=== PATIENT | female | born 1955 | race Hispanic/Latino ===

== ENCOUNTER 2016-08-30 06:55 | Emergency (ER) | payer OTHER ==
[~2016-08-30] VITALS: Ht 162.6 cm; Wt 108.9 kg
[2016-08-30] MEDS ORDERED: PROAIR HFA8.5 GM INH (07:44)
[2016-08-30] MEDS ORDERED: LISINOPRIL20 M1 PO (07:45)
[2016-08-30] MEDS ORDERED: HUMALOG MI100 UNIT/3 SC (07:45)
[2016-08-30] MEDS ORDERED: JENTADUETO 2.51 EAC2 PO (07:45)
[2016-08-30] MEDS ORDERED: AMBIEN10 M1 PO (07:46)
[2016-08-30] MEDS ORDERED: ONGLYZA5 M1 PO (07:46)
[2016-08-30] MEDS ORDERED: ASPIRIN81 M4 PO (07:46)
--- NOTE | 2016-08-30 07:54 | ED DYSPNEA/ASTHMA COMPLAINT ---
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 REP Source: patient Exam Limitations: no limitations Vital Signs & Intake/Output Vital Signs & Intake/Output Vital Signs Date Time Temp Pulse Resp B/P Pulse O2 O2 Flow FiO2 Ox Delivery Rate 08/30 0757 93 08/30 0745 96 Room Air 08/30 0708 97.4 104 20 154/81 95 Room Air Allergies Coded Allergies: No Known Allergies (08/30/16) Reconcile Medications Albuterol Sulfate (Proair Hfa) 90 MCG HFA.AER.AD 2 PUF INH Q4-6 PRN PRN BREATHING (Reported) Amoxicillin 875 MG TABLET 1 TAB PO BID uri Aspirin (Aspirin*) 81 MG TAB.CHEW 1 TAB PO DAILY HEART HEALTH (Reported) Benzonatate (Tessalon Perle) 100 MG CAPSULE 1 CAP PO TID cough Ibuprofen 600 MG TABLET 1 TAB PO Q6PRN PRN pain, fever with food Insulin NPL/Insulin Lispro (Humalog Mix 75-25 Kwikpen) 100 UNIT/ML (75-25) INSULN.PEN 50 U SC DIABETES (Reported) Linagliptin/Metformin HCl (Jentadueto 2.5 MG-1000 MG Tab) 2.5 MG-1,000 MG TABLET 1 TAB PO BID DIABETES (Reported) Lisinopril 20 MG TABLET 1 TAB PO DAILY HEART (Reported) Prednisone 20 MG TABLET 1 TAB PO BID asthma Saxagliptin (Onglyza) 5 MG TABLET 1 TAB PO DAILY DIABETES (Reported) Zolpidem Tartrate (Ambien) 10 MG TABLET 1 TAB PO QPM SLEEP (Reported) Triage Note: 60 Y/O FEMALE C/O "I HAVE A COLD AND ITS MAKING MY ASTHMA WORSE". REPORTS COUGH WITH CLEAR MUCOUS, SOB AND HOARSE VOICE. LAST USE INHALER FEW MINUTES AGO PER PT. SPEAKING CLEARLY WITH NO DISTRESS NOTED; SAT 95% RA Triage Nurses Notes Reviewed? yes Onset: 2 days Duration: day(s):, constant, continues in ED Timing: recent history Severity: moderate Activities at Onset: none Prior Episodes/Possible Cause: illness exposure Modifying Factors: Improves With: rest. Worsens With: movement. Associated Symptoms: cough, loss of appetite, wheezing LMP (ages 10-50): post menopausal : No Patient currently breastfeeds: No HPI: 2 days prior to admission patient complains of nasal congestion productive cough decreased appetite chills increasing wheezing and use of MDI. She denies fever chest pain nausea vomiting diarrhea abdominal pain dysuria rash headache bleeding. Past History Travel History Traveled to [place] past 21 day No Medical History Any Pertinent Medical History? 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 Yes Review of Systems Review of Systems Constitutional: Reports: see HPI, chills, malaise. EENTM: Reports: see HPI, nasal congestion, throat pain. Respiratory: Reports: see HPI, cough, wheezing. Cardiovascular: Reports: no symptoms. GI: Reports: no symptoms. Genitourinary: Reports: no symptoms. Musculoskeletal: Reports: no symptoms. Skin: Reports: no symptoms. Neurological/Psychological: Reports: no symptoms. Hematologic/Endocrine: Reports: no symptoms. Immunologic/Allergic: Reports: no symptoms. All Other Systems: Reviewed and Negative Physical Exam Physical Exam General Appearance: well developed/nourished, alert, awake, anxious, mild distress, obese Head: atraumatic, normal appearance Eyes: Bilateral: normal appearance, PERRL, EOMI. Ears, Nose, Throat: hearing grossly normal, nasal congestion, pharyngeal erythema Neck: normal inspection, supple, full range of motion, lymphadenopathy (R), lymphadenopathy (L) Respiratory: chest non-tender, no respiratory distress, decreased breath sounds, wheezing Cardiovascular: regular rate/rhythm, normal peripheral pulses, norml femoral pulses equa Peripheral Pulses: 4+ carotid (R), 4+ carotid (L) Gastrointestinal: normal bowel sounds, soft, non-tender, no organomegaly Extremities: normal inspection, normal capillary refill, normal range of motion, no edema Neurologic/Psych: no motor/sensory deficits, awake, alert, oriented x 3, normal gait, normal mood/affect Skin: intact, normal color, warm/dry Lymphatic: adenopathy Core Measures ACS in differential dx? No Severe Sepsis Present: No Septic Shock Present: No Progress Differential Diagnosis: asthma, bronchitis, pneumonia Plan of Care: Steroid antibiotic neb Initial ED EKG: none Departure Departure Time of Disposition: 0800 Disposition: HOME OR SELF CARE Condition: Stable Clinical Impression Primary Impression: Asthma with acute exacerbation in adult Secondary Impressions: Upper respiratory tract infection Qualifiers: URI type: unspecified URI Qualified Code: J06.9 - Acute upper respiratory infection, unspecified Referrals: PATIENT HAS NO PRIMARY CARE DR (PCP/Family) Referred to [facility] as new patient No Departure Forms: Customer Survey General Discharge Information Prescriptions: Current Visit Scripts Prednisone 1 TAB PO BID #10 TAB Amoxicillin 1 TAB PO BID #20 TAB Benzonatate (Tessalon Perle) 1 CAP PO TID #21 CAP Ibuprofen 1 TAB PO Q6PRN PRN pain, fever #50 TAB with food Critical Care Note Critical Care Note Critical Care Time: non-applicable
[2016-08-30] MEDS ORDERED: PREDNISONE20 M1 PO (08:02)
[2016-08-30] MEDS ORDERED: AMOXICILLIN875 M1 PO (08:02)
[2016-08-30] MEDS ORDERED: IBUPROFEN600 M1 PO (08:02)
[2016-08-30] MEDS ORDERED: TESSALON PERLE100 M1 PO (08:02)
[2016-08-30 08:51] VITALS: BP 140/80
== END 2016-08-30 08:52 ==
LOC: ERH 06:55
DX: J45.901 Unspecified asthma with (acute) exacerbation (principal); J06.9 Acute upper respiratory infection, unspecified
CPT/HCPCS: 1263

== ENCOUNTER 2016-08-31 06:46 | Inpatient (IN) | payer OTHER ==
[~2016-08-31] VITALS: Ht 162.6 cm; Wt 108.9 kg
[~2016-08-31 06:46] MED LIST: AMBIEN10 M1 PO; AMOXICILLIN875 M1 PO; ASPIRIN81 M4 PO; HUMALOG MI100 UNIT/3 SC; IBUPROFEN600 M1 PO; JENTADUETO 2.51 EAC2 PO; LISINOPRIL20 M1 PO; ONGLYZA5 M1 PO; PREDNISONE20 M1 PO; PROAIR HFA8.5 GM INH; TESSALON PERLE100 M1 PO
--- NOTE | 2016-08-31 06:51 | NUR ---
PT C/O DIFFICULTY BREATHING X FEW MINUTES. STATES SHE WAS DRIVING HOME FROM WORK WHEN IT STARTED. PT STATES HX OF ASTHMA. O2 SATS 93% AT TRIAGE
--- NOTE | 2016-08-31 07:01 | NUR ---
PT NOW C/O CP. EKG BEING PERFORMED
--- NOTE | 2016-08-31 07:39 | NUR ---
PT TO ROOM 4 VIA W/C. PT WAS IN ED YESTERDAY FOR SAME, SENT HOME WITH SCRIPTS. DR VASQUEZ IN FOR EVAL.
--- NOTE | 2016-08-31 07:43 | ED DYSPNEA/ASTHMA COMPLAINT ---
History of Present Illness General Chief Complaint: Dyspnea (COPD, CHF, Other) Stated Complaint: DIFF BREATHING Source: patient, old records Exam Limitations: no limitations Vital Signs & Intake/Output Vital Signs & Intake/Output Vital Signs Date Time Temp Pulse Resp B/P Pulse O2 O2 Flow FiO2 Ox Delivery Rate 09/01 0932 100 140/88 09/01 0850 98 Nasal 2.0L Cannula 09/01 0239 93 Nasal 2.0L Cannula 09/01 0000 98 Nasal 2.0L Cannula 09/01 0000 96 28 98/60 98 Nasal 2.0L Cannula 08/31 2153 96 Nasal 2.0L Cannula 08/319 Nasal 2.0L Cannula 08/31 2022 98.5 106 20 122/64 95 Nasal 2.0L Cannula 08/31 2005 98.2 107 18 97/56 96 Room Air 2.0L 08/31 1924 98.1 101 16 101/100 100 Nasal 3.0L Cannula 08/31 1802 95 Nasal 2.0L Cannula 08/31 1747 95 Nasal 2.0L Cannula 08/31 1746 97.0 108 20 131/70 94 Nasal 2.0L Cannula 08/31 1745 98.7 108 20 131/70 99 Nasal 2.0L Cannula 08/31 1645 105 24 115/56 95 Nasal 2.0L Cannula 08/31 1548 96.7 107 20 133/61 98 Nasal 2.0L Cannula 08/31 1349 98.1 104 20 131/60 96 Nasal 2.0L Cannula ED Intake and Output 09/01 0000 08/31 1200 Intake Total 262 Output Total 0 Balance 262 Intake, IV 122 Intake, Oral 140 Output, Urine 0 Patient 240 lb 240 lb Weight Allergies Coded Allergies: No Known Allergies (08/30/16) Reconcile Medications Albuterol Sulfate (Proair Hfa) 90 MCG HFA.AER.AD 2 PUF INH Q4-6 PRN PRN BREATHING (Reported) Amoxicillin 875 MG TABLET 1 TAB PO BID uri Aspirin (Aspirin*) 81 MG TAB.CHEW 1 TAB PO DAILY HEART HEALTH (Reported) Benzonatate (Tessalon Perle) 100 MG CAPSULE 1 CAP PO TID cough Ibuprofen 600 MG TABLET 1 TAB PO Q6PRN PRN pain, fever with food Insulin NPL/Insulin Lispro (Humalog Mix 75-25 Kwikpen) 100 UNIT/ML (75-25) INSULN.PEN 50 U SC DIABETES (Reported) Linagliptin/Metformin HCl (Jentadueto 2.5 MG-1000 MG Tab) 2.5 MG-1,000 MG TABLET 1 TAB PO BID DIABETES (Reported) Lisinopril 20 MG TABLET 1 TAB PO DAILY HEART (Reported) Prednisone 20 MG TABLET 1 TAB PO BID asthma Saxagliptin (Onglyza) 5 MG TABLET 1 TAB PO DAILY DIABETES (Reported) Zolpidem Tartrate (Ambien) 10 MG TABLET 1 TAB PO QPM SLEEP (Reported) Triage Note: PT C/O DIFFICULTY BREATHING X FEW MINUTES. STATES SHE WAS DRIVING HOME FROM WORK WHEN IT STARTED. PT STATES HX OF ASTHMA. O2 SATS 93% AT TRIAGE Triage Nurses Notes Reviewed? yes Onset: Abrupt Duration: SINCE 3 AM Timing: multiple episodes today Severity: severe Activities at Onset: sleep Associated Symptoms: DYSPNEA HPI: This is a 52-year-old female with history of asthma and diabetes presents to the ER with chief complaint of difficulty breathing, left-sided chest pain that started at 3 AM. She was seen here yesterday for respite her symptoms and prescribed prednisone, amoxicillin and a clear white pill. She states that since 3 AM she has had worsening symptoms. Denies any diaphoresis. She states she feels that she is having an anxiety attack. No history of smoking. Past History Travel History Traveled to [place] past 21 day No Medical History Any Pertinent Medical History? 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 No Review of Systems Review of Systems Constitutional: Denies: chills, fever. EENTM: Reports: no symptoms. Respiratory: Reports: cough, short of breath. Denies: sputum production. Cardiovascular: Reports: chest pain. Denies: palpitations. GI: Denies: abdominal pain. Genitourinary: Reports: no symptoms. Musculoskeletal: Reports: no symptoms. Skin: Reports: no symptoms. Neurological/Psychological: Reports: no symptoms. Hematologic/Endocrine: Denies: bruising, bleeding, polyuria, polydipsia. Immunologic/Allergic: Denies: splenectomy. All Other Systems: Reviewed and Negative Physical Exam Physical Exam General Appearance: well developed/nourished, alert, awake Head: atraumatic, normal appearance Eyes: Bilateral: normal appearance, PERRL, EOMI. Ears, Nose, Throat: normal pharynx, normal ENT inspection, hearing grossly normal Neck: normal inspection, supple, full range of motion Respiratory: lungs clear, accessory muscle use, TACHYPNEIC Cardiovascular: tachycardia Peripheral Pulses: 2+ radial (R), 2+ radial (L) Gastrointestinal: normal bowel sounds, soft, non-tender Extremities: normal inspection, normal capillary refill, normal range of motion, no edema Neurologic/Psych: no motor/sensory deficits, awake, alert, oriented x 3, ANXIOUS Skin: intact, normal color, warm/dry Core Measures ACS in differential dx? Yes ASA ordered for poss ACS? Yes-ordered Severe Sepsis Present: No Septic Shock Present: No Progress Differential Diagnosis: AMI, bronchitis, CHF, pulmonary embolism, pneumonia, pneumothorax, unstable angina Plan of Care: Orders Procedure Date/time Status Nothing by Mouth 09/01 L Active TROPONIN LEVEL 09/01 1500 Active PARTIAL THROMBOPLASTIN TIME 09/01 1300 Active TROPONIN LEVEL 09/01 0923 Active EKG 09/01 0913 Active EKG 09/01 0912 Active LIPID PANEL 09/01 0600 Complete ICU LAB BUNDLE 09/01 0500 Complete CBC WITHOUT DIFFERENTIAL 09/01 0500 Complete PARTIAL THROMBOPLASTIN TIME 09/01 0030 Complete PROTHROMBIN TIME 09/01 0030 Complete ICU LAB BUNDLE 09/01 UNK Active Nothing by Mouth 08/31 L Complete Pain Treatment and Response 08/31 2223 Active Heparin Drip- ACS 08/31 2220 Active RT: Evaluation 08/31 2145 Active PASTORAL CARE CONSULT 08/31 1744 Active PARTIAL THROMBOPLASTIN TIME 08/31 1640 Complete PROTHROMBIN TIME 08/31 1640 Complete LACTIC ACID 08/31 1500 Complete Teach/Educate 08/31 1454 Active Nutritional Intake, Monitor 08/31 1454 Active Isolation 08/31 1454 Active Patient Care Conference 08/31 1454 Active Activity/Ambulation 08/31 1454 Active VRE ACTIVE SURVIELLANCE 08/31 1347 Active ACTIVE SURVEILLANCE NARES 08/31 1347 Active ICU LAB BUNDLE 08/31 1330 Complete ACETONE 08/31 1320 Complete Add-on Test (ER Only) 08/31 1228 Active LACTIC ACID 08/31 1227 Complete Pathway - chart 08/31 1219 Active Code Status 08/31 1219 Active ARTERIAL BLOOD GAS (GEN) 08/31 1212 Complete Add-on Test (ER Only) 08/31 1212 Active Add-on Test (ER Only) 08/31 1051 Active Intake & Output 08/31 0759 Active SALICYLATE 08/31 0757 Complete PARTIAL THROMBOPLASTIN TIME 08/31 0757 Complete PROTHROMBIN TIME 08/31 0757 Complete OXYGEN SETUP CHG 08/31 UNK Complete OXYGEN 08/31 UNK Complete OXYGEN TRANSPORT 08/31 UNK Complete TRC EVALUATION (GEN) 08/31 UNK Active THERAPIST ORDERS 08/31 UNK Complete OXYGEN SETUP (GEN) 08/31 UNK Complete Pathway - chart 08/31 UNK Active House Staff 08/31 UNK Active Lab Add-on Test 08/31 UNK Active VTE Mechanical Prophylaxis 08/31 UNK Active FingerStick- Glucose 08/31 UNK Active MISSING MEDICATION FORM 08/31 UNK Active CASE MANAGEMENT CONSULT 08/31 UNK Active Current Medications Sig/Guilherme Start time Last Medication Dose Stop Time Status Admin Metoprolol Tartrate 25 MG BID 09/01 1001 AC (Lopressor) Prednisone 20 MG DAILY 09/01 1000 CAN 09/05 1001 Magnesium Sulfate 1 GM ONCE ONE 09/01 0830 CAN (Mag Sulfate in D5) 09/01 1229 Dextrose/Water 100 ML (D5W) Potassium Chloride 10 MEQ ONCE ONE 09/01 0830 CAN 09/01 0831 Insulin Human Regular 0 Q6 08/31 1800 CAN (Novolin R Inj (Npo Patient)) Insulin Human Regular 100 UNIT Q24H 08/31 1400 CAN (Novolin R (Insulin Drip)) Sodium Chloride 100 ML (Normal Saline 0.9%) Potassium Chloride 20 MEQ Q13H 08/31 1400 CAN (KCl 20MEQ in D5/ HALF N.S. 1000 ML bag) Dextrose/Sodium 1,000 ML Chloride (D5W-1/2 Normal Saline 1000ML) Sodium Chloride 500 ML BOLUS ONE 08/31 1215 CAN (Normal Saline 0.9%) 08/31 1314 Laboratory Tests 09/01/16 0930: Troponin I Pending 09/01/16 0930: Sodium Pending, Potassium Pending, Chloride Pending, Carbon Dioxide Pending, Anion Gap Pending, BUN Pending, Creatinine Pending, Glucose Pending, Calcium Pending, Phosphorus Pending, Magnesium Pending, Total Bilirubin Pending, AST Pending, ALT Pending, Albumin Pending 09/01/16 0913: Troponin I Cancelled 09/01/16 0615: Urine Color YEL, Urine Clarity HAZY H, Urine pH 6.0, Ur Specific [place] 1.025, Urine Protein TRACE H, Urine Ketones TRACE H, Urine Nitrite NEG, Urine Bilirubin NEG, Urine Urobilinogen 0.2, Ur Leukocyte Esterase SMALL H, Ur Microscopic SEDIMENT EXAMINED, Urine RBC 1-3, Urine WBC 15-25 H, Ur Epithelial Cells MOD H, Urine Hemoglobin TRACE-INTACT, Urine Glucose NEG 09/01/16 0420: Triglycerides 138, Cholesterol 142, LDL Cholesterol, Calc 55 L, HDL Cholesterol 60, Cholesterol/HDL Ratio 2 09/01/16 0420: Anion Gap 6, Estimated GFR > 60, Glucose 148 H, Calcium 8.0 L, Phosphorus 2.8, Magnesium 1.7, Total Bilirubin 0.3, AST 57 H, ALT 52, Albumin 3.1 L, CBC w Diff NO MAN DIFF REQ, RBC 4.28, MCV 88.6, MCH 28.9, RDW 13.1, MPV 9.2, Gran % 63.5, Lymphocytes % 25.9, Monocytes % 10.0 H, Eosinophils % 0.3, Basophils % 0.3, Absolute Granulocytes 6.4, Absolute Lymphocytes 2.6, Absolute Monocytes 1.0 H, Absolute Eosinophils 0, Absolute Basophils 0, PUBS MCHC 32.6 L 09/01/16 0030: Troponin I 0.36 *H, PT 11.2, INR 1.07, APTT 66 H 08/31/16 1725: PT 10.9, INR 1.04, APTT 56 H 08/31/16 1505: Troponin I 0.43 *H 08/31/16 1505: Lactic Acid 1.3 08/31/16 1351: Sodium Cancelled, Potassium Cancelled, Chloride Cancelled, Carbon Dioxide Cancelled, Anion Gap Cancelled, BUN Cancelled, Creatinine Cancelled, BUN/ Creatinine Ratio Cancelled 08/31/16 1330: Anion Gap 14, Estimated GFR > 60, Glucose 107 H, Calcium 8.7, Phosphorus 2.6, Magnesium 1.7, Total Bilirubin 0.4, AST 39 H, ALT 58 H, Albumin 3.8, Acetone Level NEGATIVE 08/31/16 1232: Lactic Acid 2.3 H 08/31/16 1230: pH 7.38, pCO2 37, pO2 75 L, HCO3 21, ABG O2 Sat (Measured) 94.0 L, P-50 (Temp Corrected) N, Carboxyhemoglobin 0.7 L, O2 Concentration % 2LPM, O2 Delivery Method NC, Phlebotomy Draw Site RIGHT BRACHIAL Microbiology 08/31 2136 UPPER RESP: Surveillance Culture - RECD 08/31 2136 GI: Surveillance Culture - RECD EKG IN TRIAGE SHOWS SINUS TACHYCARDIA. TELE MONITOR, LABS. ASPIRIN, ATIVAN ORDERED. CHEST XRAY ORDERED. ELEVATED TROPONIN 0.11. NITROGLYCERIN SL, LABETALOL ORDERED. ELEVATED GLUCOSE, ANION GAP. SC INSULIN, NS ORDERED BOLUS. WILL REPEAT BMP. 10 AM CARDIOLOGY SHEET HEATER PAGED. D/W DR JONES. IV HEPARIN ADMINISTERED. CT CHEST ANGIOGRAM ORDERED DESPITE NEGATIVE D-DIMER. WILL ADMIT TO TELEMETRY. PATIETN SEEN BY DR LINO IN THE ED. ADVISES ICU TRANSFER POSSIBLE DKA. PH IS 3.8. (PEDRO GLEASON,[facility]) Diagnostic Imaging: Viewed by Me: Radiology Read, CT Scan. Discussed w/RAD: Radiology Read, CT Scan. Radiology Impression: EXAM TYPE: CAT - CTA CHEST EXAMINATION: CT ANGIOGRAM OF THE CHEST WITH CONTRAST (CT PULMONARY ANGIOGRAM FOR PE) CLINICAL INFORMATION: Chest pain and shortness of breath. COMPARISON: CXR from 08/31/2016 TECHNIQUE: Prior to contrast administration, noncontrast localization images were obtained. Subsequently, multidetector volumetric imaging was performed from the thoracic inlet to below the diaphragms following the administration of 95 mL of Optiray 320 intravenous contrast. No contrast reaction reported. Sagittal, coronal, and MIP oblique sagittal reformatted images were obtained on the CT workstation, uploaded to PACS, and reviewed. Total exam dose-length product 488 mGy-cm FINDINGS: QUALITY OF STUDY/CONTRAST BOLUS: Satisfactory. PULMONARY ARTERIES: Stable pulmonary arteries are normal in caliber. No filling defects within the main, lobar or proximal segmental pulmonary arteries. Small, peripheral vessels are difficult to evaluate due to motion degradation of images. THORACIC AORTA: Thoracic aorta is normal in caliber; no aneurysm or dissection. LUNGS AND PLEURA : Trachea and mainstem bronchi are widely patent and normal in caliber. There is bronchial wall thickening that is most conspicuous in the upper lobes -- as may be seen in bronchitis or asthma. Within the upper lobes, there are subtle centrilobular groundglass opacities and small nodular opacities that measure up to 0.3 cm; findings are highly suggestive of bronchiolitis. No pulmonary consolidation, edema or pleural effusion or pneumothorax. MEDIASTINUM: The heart size is normal. No pericardial effusion. The esophagus and thyroid gland are unremarkable. No evidence of septal bowing or right heart strain. LYMPHATICS: No pathologic sized axillary or hilar lymph nodes. Precarinal and subcarinal lymph nodes that measure 1 cm AP and are approaching the upper range of normal size. UPPER ABDOMEN: Unremarkable. OSSEOUS STRUCTURES: There is prominent paraspinal ossification of the degenerated thoracic spine. No aggressive osseous lesions. IMPRESSION: 1. No pulmonary embolism. 2. Bronchial wall thickening, most conspicuous in upper lobes, associated with subtle centrilobular groundglass opacities and small centrilobular nodules. These findings are highly suggestive of airway inflammation and possible infectious bronchiolitis. Query whether patient has history of asthma. CXR Impression: EXAM TYPE: RAD - XRY-CHEST XRAY, PA AND LATERAL EXAMINATION: XR CHEST CLINICAL INFORMATION: Left-sided chest pain. Shortness of breath. COMPARISON: None. TECHNIQUE: PA and lateral views of the chest were obtained. FINDINGS: The lungs are well expanded. There is no focal consolidation, edema, or effusion. No pneumothorax. The cardiomediastinal silhouette is within normal limits. No acute osseous abnormality. Degenerative changes in the spine with mild anterior vertebral body wedging at the lower thoracic spine. This is unlikely to be acute. IMPRESSION: No acute pulmonary findings. Initial ED EKG: SINUS TACHYCARDIA Repeat EKG: unchanged (SINUS TACHYCARDIA - IMP BASELI) Rhythm Strip: sinus tachycardia Departure Departure Time of Disposition: 1001 Disposition: STILL A PATIENT Condition: Stable Clinical Impression Primary Impression: Dyspnea Secondary Impressions: Hyperglycemia, NSTEMI (non-ST elevated myocardial infarction) Referrals: PATIENT HAS NO PRIMARY CARE DR (PCP/Family) Departure Forms: Customer Survey General Discharge Information Admission Note Spoke With: ROBERT GLEASON,[facility] Documentation of Exam: Documentation of any treatments & extenuating circumstances including Concerns Regarding Discharge (functional status, medication knowledge or non-compliance, living conditions, etc.) that warrant an admission rather than observation: [ TELE MONITOR, IV HEPARIN, SERIAL EKG/TROPONIN, ECHOCARDIOGRAM, F/U CT CHEST ANGIOGRAM] Critical Care Note Critical Care Note Critical Care Time: 30-74 min
--- NOTE | 2016-08-31 08:03 | NUR ---
PT TO X-RAY VIA STRETCHER.
[2016-08-31 08:04] LABS: ABSOLUTE BASOPHIL COUNT 0 /CUMM (0.0-0.2); ABSOLUTE EOSINOPHIL COUNT 0 /CUMM (0.0-0.7); ABSOLUTE GRANULOCYTE CT 8.7 /CUMM (1.4-6.5); ABSOLUTE LYMPH COUNT 1.5 /CUMM (1.2-3.4); ABSOLUTE MONOCYTE COUNT 0.6 /CUMM (0.10-0.60); BASOPHIL % 0.1 % (0.0-2.0); EOSINOPHIL % 0 % (0-5); GRANULOCYTE % 80.6 % (42.2-75.2); HEMATOCRIT 45.1 % (37-47); MEAN CORPUSCULAR HGB 28.9 PG (27.0-31.0); MEAN CORPUSCULAR HGB CONC 32.9 G/DL (33.0-37.0); MEAN CORPUSCULAR VOLUME 87.7 FL (81.0-99.0); MEAN PLATELET VOLUME 9.2 FL (7.4-10.4); PLATELET COUNT 264 /CUMM (130-400); RBC DISTRIBUTION WIDTH 13.3 % (11.5-14.5); RED BLOOD CELL CT 5.14 /CUMM (4.20-5.40); WHITE BLOOD CELL COUNT 10.8 /CUMM (4.8-10.8)
--- NOTE | 2016-08-31 08:13 | NUR ---
BACK FROM X-RAY
--- NOTE | 2016-08-31 08:25 | RADIOLOGY REPORT ---
EXAMINATION: XR CHEST CLINICAL INFORMATION: Left-sided chest pain. Shortness of breath. COMPARISON: None. TECHNIQUE: PA and lateral views of the chest were obtained. FINDINGS: The lungs are well expanded. There is no focal consolidation, edema, or effusion. No pneumothorax. The cardiomediastinal silhouette is within normal limits. No acute osseous abnormality. Degenerative changes in the spine with mild anterior vertebral body wedging at the lower thoracic spine. This is unlikely to be acute. IMPRESSION: No acute pulmonary findings.
--- NOTE | 2016-08-31 08:30 | NUR ---
PT'S RA SATS 89-90%. PT PLACED ON 2L NC, SATS UP TO 93-94%.
--- NOTE | 2016-08-31 09:15 | NUR ---
CRITICAL TEST RESULTS [id number] [address] TESTS AND RESULTS: TROPONIN 0.11 Results received and read back by: TOMMY AWAD Results received date and time: 08/31/16 0920 The following provider was notified of the results, and read the results back: DR VASQUEZ Notified date and time: 08/31/16 at 0915
--- NOTE | 2016-08-31 10:21 | NUR ---
PT TO CAT SCAN
--- NOTE | 2016-08-31 10:31 | History & Physical ---
RENARD FRANKLIN 08/31/16 1029: General Information and HPI MD Statement: I have seen and personally examined SJ L[facility] and documented this H&P. The patient is a 60 year old F who presented with a patient stated chief complaint of [SOB, chest pain]. Source of Information: patient Exam Limitations: no limitations History of Present Illness: 60-year-old lady with past medical history of asthma, diabetes on insulin, hypertension came to the hospital complaining of chest pain or shortness of breath. Patient reported having shortness of breath and cough started 2 days ago, her son was sick, she came to the hospital and was discharged by amoxicillin, prednisone yesterday. However this morning she had an episode of chest pain , mids sternal 7 out of 10 , nonradiating, associated with dyspnea and right hand including prompted her to come to the hospital. The hospital patient received nitroglycerin, Ativan which helped her chest pain moderately. She was found to be tachycardic and tachypneic. As well. She denies any fever, chills, recent travel, nausea or diarrhea, vomiting, constipation, acute swelling in the legs. She moved [place] and does not have a regular PCP. Denies a smoking, alcohol use, illicit drugs. Vital signs on admission OR 104, RR 25, BP 160/61, O2 saturation 96% on 2 L NA 136, CL 93, anion gap 23, glucose 475, AST 37, alt 70,trop 0.11, creatinine 0.5, EKG shows sinus tachycardia, QTC 439, heart rate 107, prolonged progression, left axis deviation CTA ruled out PE, and showed possible bronchitis Allergies/Medications Allergies: Coded Allergies: No Known Allergies (08/30/16) Home Med list Albuterol Sulfate (Proair Hfa) 90 MCG HFA.AER.AD 2 PUF INH Q4-6 PRN PRN BREATHING (Reported) Amoxicillin 875 MG TABLET 1 TAB PO BID uri Aspirin (Aspirin*) 81 MG TAB.CHEW 1 TAB PO DAILY HEART HEALTH (Reported) Benzonatate (Tessalon Perle) 100 MG CAPSULE 1 CAP PO TID cough Ibuprofen 600 MG TABLET 1 TAB PO Q6PRN PRN pain, fever with food Insulin NPL/Insulin Lispro (Humalog Mix 75-25 Kwikpen) 100 UNIT/ML (75-25) INSULN.PEN 50 U SC DIABETES (Reported) Linagliptin/Metformin HCl (Jentadueto 2.5 MG-1000 MG Tab) 2.5 MG-1,000 MG TABLET 1 TAB PO BID DIABETES (Reported) Lisinopril 20 MG TABLET 1 TAB PO DAILY HEART (Reported) Prednisone 20 MG TABLET 1 TAB PO BID asthma Saxagliptin (Onglyza) 5 MG TABLET 1 TAB PO DAILY DIABETES (Reported) Zolpidem Tartrate (Ambien) 10 MG TABLET 1 TAB PO QPM SLEEP (Reported) Past History Travel History Traveled to [place] past 21 day No Medical History Neurological: NONE EENT: NONE Cardiovascular: NONE Respiratory: asthma Gastrointestinal: NONE Hepatic: NONE Renal: NONE Musculoskeletal: NONE Psychiatric: NONE Endocrine: diabetes Blood Disorders: NONE Cancer(s): NONE REPAIR WELDER/Reproductive: NONE Surgical History Surgical History: non-contributory Past Family/Social History Family History Relations & Conditions if any MOTHER (diabetes). Psychosocial History ETOH Use: denies use Illicit Drug Use: denies illicit drug use Review of Systems Review of Systems Constitutional: Reports: see HPI. Exam & Diagnostic Data Last 24 Hrs of Vital Signs/I&O Vital Signs Date Time Temp Pulse Resp B/P Pulse O2 O2 Flow FiO2 Ox Delivery Rate 08/31 1007 104 20 116/61 96 Room Air 08/31 0921 96.5 116 20 120/80 92 Nasal 2.0L Cannula 08/31 0830 94 Nasal 2.0L Cannula 08/31 0651 97.6 120 26 147/90 93 Room Air Intake & Output 08/31 1600 08/31 0800 08/31 0000 Intake Total Output Total Balance Patient 240 lb Weight Physical Exam General Appearance Alert, Oriented X3, Cooperative, No Acute Distress Cardiovascular Normal S1, Normal S2, tachycardia Lungs decreased breath sounds billaterally Extremities No Clubbing, No Cyanosis, trace right ankle edema Assessment/Plan Assessment: 60-year-old lady with past medical history of asthma, diabetes on insulin, hypertension came to the hospital complaining of chest pain or shortness of breath. Patient reported having shortness of breath and cough started 2 days ago, her son was sick, she came to the hospital and was discharged by amoxicillin, prednisone yesterday. However this morning she had an episode of chest pain , mids sternal 7 out of 10 , nonradiating, associated with dyspnea and right hand including prompted her to come to the hospital. The hospital patient received nitroglycerin, Ativan which helped her chest pain moderately. She was found to be tachycardic and tachypneic. As well. She denies any fever, chills, recent travel, nausea or diarrhea, vomiting, constipation, acute swelling in the legs. She moved [place] and does not have a regular PCP. Denies a smoking, alcohol use, illicit drugs. Vital signs on admission OR 104, RR 25, BP 160/61, O2 saturation 96% on 2 L NA 136, CL 93, anion gap 23, glucose 475, AST 37, alt 70,trop 0.11, creatinine 0.5, EKG shows sinus tachycardia, QTC 439, heart rate 107, prolonged progression, left axis deviation CTA ruled out PE, and showed possible bronchitis Assessment and plan #Elevated troponins chest pain/elevated CPK -possibly NSTEMI given the fact that CPK is elevated -NPO for now -Patient was a started on IV heparin -Echocardiogram -ekg troponins 3 -Lipid panel in the morning -Aspirin was already given , continue 85 mg aspirin daily -We can hold off metoprolol due to asthma -We can hold off statin due to elevated liver enzymes,check LFT later -We hold off lisinopril for possible cath -We follow Richard Sebastian MD notes #Diabetes /elevated sugar -Rule out DKA -NPO for now and the patient on normal saline -Endocrine consult -Patient got 50 units of NovoLog in the ED, we put the patient on NPO Novolin N sliding scale -Check BEP, ABG, ketones, salicylates in NOON #Respiratory distress, history of asthma, bronchitis -TR -Follow-up pulmonology note -Hold off on antibiotics and steroids for now #DVT prophylaxis is IV heparin and a LPS, full code, Tylenol for pain, NPO As Ranked By This Provider Problem List: 1. Asthma with acute exacerbation in adult 2. Upper respiratory tract infection 3. Dyspnea Core Measures/Miscellaneous Acute Coronary Syndrome ACS Diagnosis: Yes ASA W/I 24hr of admit Yes Beta-Johan W/I 24hrs Yes LDL assessed W/I 24 hrs Yes Cerebrovascular Accident CVA/TIA Diagnosis: No Congestive Heart Failure CHF Diagnosis: No Venous Thromboembolism VTE Risk Factors: Age > 40 VTE Prophylaxis Ordered Inpt: Mech & Pharm No Mech VTE prophylaxis d/t: No contraindications No VTE Pharm Prophylaxis d/t: No contraindications VTE Diagnosis: No VTE Type: NONE VTE Confirmed by (Test): NONE Severe Sepsis Severe Sepsis Present: No Septic Shock Septic Shock Present: No Miscellaneous Documentation Attending Case Discussed With: DR HOPSON Primary Care Physician: PATIENT HAS NO PRIMARY CARE DR Patient sees these Specialists N/A Level of Patient Care: Telemetry ROBERT GLEASON,[facility] 08/31/16 2201: Attending MD Review Statement Attending Statement Attending MD Statement: examined this patient, discuss w/resident/PA/CASTING MACHINE OPERATOR AUTOMATIC, reviewed EMR data (avail), reviewed images, amended to note (see my note)
--- NOTE | 2016-08-31 10:33 | NUR ---
BACK FROM CAT SCAN
--- NOTE | 2016-08-31 10:52 | NUR ---
HOUSESTAFF AT BEDSIDE
[2016-08-31 11:05] LABS: PT 10.8 SEC (9.4-12.5); PTT 29 SEC (25-37)
--- NOTE | 2016-08-31 11:06 | CT SCAN REPORT ---
EXAMINATION: CT ANGIOGRAM OF THE CHEST WITH CONTRAST (CT PULMONARY ANGIOGRAM FOR PE) CLINICAL INFORMATION: Chest pain and shortness of breath. COMPARISON: CXR from 08/31/2016 TECHNIQUE: Prior to contrast administration, noncontrast localization images were obtained. Subsequently, multidetector volumetric imaging was performed from the thoracic inlet to below the diaphragms following the administration of 95 mL of Optiray 320 intravenous contrast. No contrast reaction reported. Sagittal, coronal, and MIP oblique sagittal reformatted images were obtained on the CT workstation, uploaded to PACS, and reviewed. Total exam dose-length product 488 mGy-cm FINDINGS: QUALITY OF STUDY/CONTRAST BOLUS: Satisfactory. PULMONARY ARTERIES: Stable pulmonary arteries are normal in caliber. No filling defects within the main, lobar or proximal segmental pulmonary arteries. Small, peripheral vessels are difficult to evaluate due to motion degradation of images. THORACIC AORTA: Thoracic aorta is normal in caliber; no aneurysm or dissection. LUNGS AND PLEURA: Trachea and mainstem bronchi are widely patent and normal in caliber. There is bronchial wall thickening that is most conspicuous in the upper lobes -- as may be seen in bronchitis or asthma. Within the upper lobes, there are subtle centrilobular groundglass opacities and small nodular opacities that measure up to 0.3 cm; findings are highly suggestive of bronchiolitis. No pulmonary consolidation, edema or pleural effusion or pneumothorax. MEDIASTINUM: The heart size is normal. No pericardial effusion. The esophagus and thyroid gland are unremarkable. No evidence of septal bowing or right heart strain. LYMPHATICS: No pathologic sized axillary or hilar lymph nodes. Precarinal and subcarinal lymph nodes that measure 1 cm AP and are approaching the upper range of normal size. UPPER ABDOMEN: Unremarkable. OSSEOUS STRUCTURES: There is prominent paraspinal ossification of the degenerated thoracic spine. No aggressive osseous lesions. IMPRESSION: 1. No pulmonary embolism. 2. Bronchial wall thickening, most conspicuous in upper lobes, associated with subtle centrilobular groundglass opacities and small centrilobular nodules. These findings are highly suggestive of airway inflammation and possible infectious bronchiolitis. Query whether patient has history of asthma.
--- NOTE | 2016-08-31 12:12 | NUR ---
DR LINO AT BEDSIDE.
--- NOTE | 2016-08-31 12:21 | NUR ---
RT AT BEDSIDE FOR ABG
--- NOTE | 2016-08-31 12:30 | NUR ---
PT ASKING FOR FOOD, AWARE OF NPO STATUS. PT ANXIOUS ABOUT NOT BEING ABLE TO EAT.
--- NOTE | 2016-08-31 12:42 | Admission Certification ---
Admission Certification Certification Statement - As attending physician, I certify that at the time of - admission, based on clinical presentation, severity of - symptoms, need for further diagnostic testing and - therapeutic interventions, and risk of adverse outcomes - without in-hospital treatment, in my clinical assessment, - this patient requires an acute hospital stay for a minimum - of two nights or longer. I have also considered psychsocial - factors such as support system, advanced age, financial - issues, cognitive issues, and failed out-patient treatments, - past re-admission history, safety of patient, and lack of - compliance as applicable. Specific rationale supporting this admission is: Elevated troponin, concern for DKA, admitted for IV heparin infusion, IV fluids Thomas Sebastian MD [facility]
--- NOTE | 2016-08-31 12:45 | PN- Att Addend ---
Attending Addendum Attending Brief Note I have personally seen and examined this patient and discussed with the admitting housestaff and pulmonary/critical care care consult, Dr. Kruger. Patient HD stable. Complains of diffuse pain and some sharp pain with cough but no substernal chest pain. Continue IV heparin but ACS is unlikely. Check Echo. No PE by CT scan. Pulmonary and Endocrine consults requested. Check ABG. Keep on telemetry. Follow troponins. Will need additional ischemic work-up in the future but urgent cardiac cath is not currently indicated. Monitor LFTs. No evidence of acute abdomen at this time. Needs full admission, not ready for discharge. Thomas Sebastian MD [facility]
--- NOTE | 2016-08-31 13:16 | NUR ---
ROOM 113 IS PT BED ASSIGNMENT
--- NOTE | 2016-08-31 13:31 | NUR ---
SST DRAWN FOR ACETONE LEVEL.
--- NOTE | 2016-08-31 13:31 | NUR ---
CRITICAL TEST RESULTS [id number] [address] F TESTS AND RESULTS: LACTIC ACID 2.3 Results received and read back by: JUS SPAULDING Results received date and time: 08/31/16 1331 The following provider was notified of the results, and read the results back: DR. VASQUEZ Notified date and time: 08/31/16 at 1331
--- NOTE | 2016-08-31 13:43 | NUR ---
HOUSE STAFF AWARE OF PT'S LACTIC ACID. AT BEDSIDE.
--- NOTE | 2016-08-31 15:59 | NUR ---
CRITICAL TEST RESULTS [id number] [address] F TESTS AND RESULTS: TROPONIN 0.43 Results received and read back by: TOO MORROW Results received date and time: 08/31/16 1559 The following provider was notified of the results, and read the results back: PAGED DR HURTADO #[phone] Notified date and time: 08/31/16 at 1600
--- NOTE | 2016-08-31 16:09 | NUR ---
ACCUCHECK 67 PT MEDICATED WITH 1/2 AMP DEXTROSE 50% X 2 DOSES, LEVEMIR INSULIN 10 UNITS AND IVF D5 1/2 N/S WITH 20 KCL INCREASED TO 100 MLS/HR PER ORDERS DR HURTADO PAGER # [phone]. WILL CONTINUE TO MONITOR.
--- NOTE | 2016-08-31 16:31 | NUR ---
CALLED PHARMACY FOR 16:00 MEDS
--- NOTE | 2016-08-31 17:01 | NUR ---
REPEAT EKG AND BLOODWORK BY CUBA LIGHT AT PRESENT
--- NOTE | 2016-08-31 17:18 | NUR ---
PT DIFFICULT STICK, LAB CALLED FOR COAGS.
--- NOTE | 2016-08-31 17:25 | NUR ---
WINDOWS ADMIN AT BEDSIDE FOR LAB DRAW
--- NOTE | 2016-08-31 17:33 | NUR ---
PT MEDICATED WITH TYLENOL PRN FOR H/A PAIN 04/06.
[2016-08-31 17:46] VITALS: BP 131/70
--- NOTE | 2016-08-31 17:49 | Cons- Endocrinology ---
General Information and HPI Consulting Request Date of Consult: 08/31/16 Requested By: medical team Reason for Consult: management of DM type 2 Source of Information: patient, old records Exam Limitations: no limitations History of Present Illness: 60-year-old female with past medical history of asthma, diabetes type 2 on Humalog 75/25 mix between 50 and 55 units twice a day and Jentadueto 2.12/999 mg once a day at home, and hypertension, presented to ER with the chief complaints of having chest pain and shortness of breath. In ER, her glucose level was 475, bicarb 20 and AG 22. Her troponin was 0.11 initally. Repeat Troponin at 3pm was up to 0.43. Patient received Novolog 70/30 mix 50 units at around 10 am and her glucose level went down to 65 and 67. Patient received dextrose intravenously. At 1:30 pm, repeat chemistry panel showed bicarb of 26 and AG of 14. The most recent FSG was 147. Currently she is kept NPO and is on heparin drip. Allergies/Medications Allergies: Coded Allergies: No Known Allergies (08/30/16) Home Med List: Albuterol Sulfate (Proair Hfa) 90 MCG HFA.AER.AD 2 PUF INH Q4-6 PRN PRN BREATHING (Reported) Amoxicillin 875 MG TABLET 1 TAB PO BID uri Aspirin (Aspirin*) 81 MG TAB.CHEW 1 TAB PO DAILY HEART HEALTH (Reported) Benzonatate (Tessalon Perle) 100 MG CAPSULE 1 CAP PO TID cough Ibuprofen 600 MG TABLET 1 TAB PO Q6PRN PRN pain, fever with food Insulin NPL/Insulin Lispro (Humalog Mix 75-25 Kwikpen) 100 UNIT/ML (75-25) INSULN.PEN 50 U SC DIABETES (Reported) Linagliptin/Metformin HCl (Jentadueto 2.5 MG-1000 MG Tab) 2.5 MG-1,000 MG TABLET 1 TAB PO BID DIABETES (Reported) Lisinopril 20 MG TABLET 1 TAB PO DAILY HEART (Reported) Prednisone 20 MG TABLET 1 TAB PO BID asthma Saxagliptin (Onglyza) 5 MG TABLET 1 TAB PO DAILY DIABETES (Reported) Zolpidem Tartrate (Ambien) 10 MG TABLET 1 TAB PO QPM SLEEP (Reported) Review of Systems Review of Systems Constitutional: Reports: see HPI, malaise. Cardiovascular: Reports: chest pain, orthopena. Respiratory: Reports: cough, short of breath, sputum production. GI: Denies: abdominal pain. Hematologic/Endocrine: Denies: polyuria, polydipsia. Past History Travel History Traveled to [place] past 21 day No Medical History Blood Transfusion Hx: No Neurological: NONE EENT: NONE Cardiovascular: NONE Respiratory: asthma Gastrointestinal: NONE Hepatic: NONE Renal: NONE Musculoskeletal: NONE Psychiatric: NONE Endocrine: diabetes Blood Disorders: NONE Cancer(s): NONE FRIT MIXER/Reproductive: NONE Surgical History Surgical History: JEANNE PARTIAL KNEE REPL Family History Relations & Conditions If Any: MOTHER (diabetes). Psychosocial History Where Do You Live? Home Services at Home: None Smoking Status: Never Smoked ETOH Use: denies use Illicit Drug Use: denies illicit drug use Exam & Diagnostic Data Last 24 Hrs of Vital Signs/I&O Vital Signs Date Time Temp Pulse Resp B/P Pulse O2 O2 Flow FiO2 Ox Delivery Rate 08/31 1747 95 Nasal 2.0L Cannula 08/31 1746 97.0 108 20 131/70 94 Nasal 2.0L Cannula 08/31 1645 105 24 115/56 95 Nasal 2.0L Cannula 08/31 1548 96.7 107 20 133/61 98 Nasal 2.0L Cannula 08/31 1349 98.1 104 20 131/60 96 Nasal 2.0L Cannula 08/31 1037 105 20 152/79 96 Nasal 2.0L Cannula 08/31 1036 96.5 104 20 116/61 04 1007 104 20 116/61 96 Room Air 08/31 0921 96.5 116 20 120/80 92 Nasal 2.0L Cannula 08/31 0830 94 Nasal 2.0L Cannula 08/31 0651 97.6 120 26 147/90 93 Room Air Intake & Output 08/31 1600 08/31 0800 08/31 0000 Intake Total Output Total Balance Patient 240 lb Weight Physical Exam General Appearance: mild distress Neck: normal inspection Respiratory: decreased breath sounds Cardiovascular: tachycardia (mild) Gastrointestinal: soft Extremities: swelling Labs/Ra Results: Laboratory Tests 08/31 08/31 08/31 08/31 08/31 1725 1505 1505 1351 1330 Chemistry Sodium (137 - 145 mmol/L) Cancelled 141 Potassium (3.5 - 5.1 mmol/L) Cancelled 3.9 Chloride (98 - 107 mmol/L) Cancelled 101 Carbon Dioxide (22 - 30 mmol/L) Cancelled 26 Anion Gap (5 - 16) Cancelled 14 BUN (7 - 17 mg/dL) Cancelled 9 Creatinine (0.5 - 1.0 mg/dL) Cancelled 0.5 Estimated GFR (>60 ml/min) > 60 BUN/Creatinine Ratio Cancelled Glucose (65 - 99 mg/dL) 107 H Lactic Acid (0.7 - 2.1 mmol/L) 1.3 Calcium (8.4 - 10.2 mg/dL) 8.7 Phosphorus (2.5 - 4.5 mg/dL) 2.6 Magnesium (1.6 - 2.3 mg/dL) 1.7 Total Bilirubin (0.2 - 1.3 mg/dL) 0.4 AST (14 - 36 U/L) 39 H ALT (9 - 52 U/L) 58 H Troponin I (< 0.11 ng/ml) 0.43 *H Albumin (3.5 - 5.0 g/dL) 3.8 Coagulation PT Pending INR Pending APTT Pending Toxicology Acetone Level (NEGATIVE) NEGATIVE 08/31 08/31 1232 1230 Blood Gas pH (7.35 - 7.45 PH) 7.38 pCO2 (35 - 45 TORR) 37 pO2 (80 - 100 TORR) 75 L HCO3 (21 - 28 MEQ/L) 21 ABG O2 Sat (Measured) (>96.0 %) 94.0 L P-50 (Temp Corrected) N Carboxyhemoglobin (1.5 - 5.0 %) 0.7 L O2 Concentration % 2LPM O2 Delivery Method NC Chemistry Lactic Acid (0.7 - 2.1 mmol/L) 2.3 H Miscellaneous Phlebotomy Draw Site RIGHT BRACHIAL 08/31 8277 Chemistry Sodium (137 - 145 mmol/L) 136 L Potassium (3.5 - 5.1 mmol/L) 4.5 Chloride (98 - 107 mmol/L) 93 L Carbon Dioxide (22 - 30 mmol/L) 20 L Anion Gap (5 - 16) 22 H BUN (7 - 17 mg/dL) 11 Creatinine (0.5 - 1.0 mg/dL) 0.5 Estimated GFR (>60 ml/min) > 60 BUN/Creatinine Ratio (7 - 25 %) 22.0 Glucose (65 - 99 mg/dL) 475 H Calcium (8.4 - 10.2 mg/dL) 9.7 Total Bilirubin (0.2 - 1.3 mg/dL) 0.6 AST (14 - 36 U/L) 37 H ALT (9 - 52 U/L) 70 H Alkaline Phosphatase (<127 U/L) 73 Creatine Kinase (30 - 135 U/L) 276 H Troponin I (< 0.11 ng/ml) 0.11 *H Total Protein (6.3 - 8.2 g/dL) 8.1 Albumin (3.5 - 5.0 g/dL) 4.5 Globulin (1.9 - 4.2 gm/dL) 3.6 Albumin/Globulin Ratio (1.1 - 2.2 %) 1.3 Coagulation PT (9.4 - 12.5 SEC) 10.8 INR (0.90 - 1.19) 1.03 APTT (25 - 37 SEC) 29 D-Dimer (70 - 232 ng/ml) < 200 Hematology CBC w Diff NO MAN DIFF REQ WBC (4.8 - 10.8 /CUMM) 10.8 RBC (4.20 - 5.40 /CUMM) 5.14 Hgb (12.0 - 16.0 G/DL) 14.8 Hct (37 - 47 %) 45.1 MCV (81.0 - 99.0 FL) 87.7 MCH (27.0 - 31.0 PG) 28.9 RDW (11.5 - 14.5 %) 13.3 Plt Count (130 - 400 /CUMM) 264 MPV (7.4 - 10.4 FL) 9.2 Gran % (42.2 - 75.2 %) 80.6 H Lymphocytes % (20.5 - 51.1 %) 13.9 L Monocytes % (1.7 - 9.3 %) 5.4 Eosinophils % (0 - 5 %) 0 Basophils % (0.0 - 2.0 %) 0.1 Absolute Granulocytes (1.4 - 6.5 /CUMM) 8.7 H Absolute Lymphocytes (1.2 - 3.4 /CUMM) 1.5 Absolute Monocytes (0.10 - 0.60 /CUMM) 0.6 Absolute Eosinophils (0.0 - 0.7 /CUMM) 0 Absolute Basophils (0.0 - 0.2 /CUMM) 0 PUBS MCHC (33.0 - 37.0 G/DL) 32.9 L Toxicology Salicylates (0 - 20.0 mg/dL) < 1.0 Assessment/Plan Assessment/Plan 60-year-old female with past medical history of asthma, diabetes type 2 on Humalog 75/25 mix between 50 and 55 units twice a day and Jentadueto 2.12/999 mg once a day at home, and hypertension, presented to ER with the chief complaints of having chest pain and shortness of breath. Her troponin has been rising with the most recent troponin level of 0.43. She received Novolog 70/30 mix 50 units at 10 am and her glucose level dropped requiring iv dextrose. The most recent FSG was 147. Currently she is on heprin drip and has been kept NPO. DM management: 1. monitor FSG every 4 hours or sooner as it is indicated; 2. agree with Levemir 10 units twice a day; however, Levemir will be held if her FSG is < 200 at bedtime tonight. 3. adjust Novolog coverage every 4 hours-- ---FSG < 180 no coverage ---180-200, 2 units ---201-250, 3 units ---251-300, 4 units ---301-350, 6 units ---351-400, 8 units ---> 400 10 units 4. monitor FSGs. 5. please inform me if patient will be placed on IVF with dextrose or/and patient will be placed on steroid, then I will adjust her insulin orders accordingly. will follow. The above plan has been discussed with team. Consult Acknowledgment - Thank you for your consult request.
--- NOTE | 2016-08-31 17:52 | NUR ---
ADMISSION IPOC DOCUMENTATION DONE AT THIS TIME.
--- NOTE | 2016-08-31 17:57 | Cons- Pulmonary ---
General Information and HPI Consulting Request Date of Consult: 08/31/16 Requested By: MEd team History of Present Illness: 60-year-old lady with past medical history of asthma, diabetes on insulin, hypertension came to the hospital complaining of chest pain or shortness of breath. Patient reported having shortness of breath and cough started 2 days ago, her son was sick, she came to the hospital and was discharged by amoxicillin, prednisone yesterday. However this morning she had an episode of chest pain , mids sternal 7 out of 10 , nonradiating, associated with dyspnea and right hand including prompted her to come to the hospital. The hospital patient received nitroglycerin, Ativan which helped her chest pain moderately. She was found to be tachycardic and tachypneic. As well. She denies any fever, chills, recent travel, nausea or diarrhea, vomiting, constipation, acute swelling in the legs. She moved [place] and does not have a regular PCP. Denies a smoking, alcohol use, illicit drugs. Vital signs on admission IL 104, RR 25, BP 160/61, O2 saturation 96% on 2 L NA 136, CL 93, anion gap 23, glucose 475, AST 37, alt 70,trop 0.11, creatinine 0.5, EKG shows sinus tachycardia, QTC 439, heart rate 107, prolonged progression, left axis deviation CTA ruled out PE, and showed possible bronchitis Initial blood work suggestive of significant anion gap. However repeat blood work did not show that. Patient had received intravenous fluids. Her lactic acid was normal a salicylic acid was normal and acetone was negative. Patient does have diabetes for which she takes insulin and she is being now on insulin. She has been noncompliant with the medication. She does have chronic asthma history she only uses pro-air. She is not on any preventative therapy. She has never been intubated. She is not a smoker. She does seem to have history suggestive of anxiety as well. She denies taking any prednisone in the recent past. However she did receive 1 dose of prednisone last night and her sugars have been running high. She has never had any previous history suggestive of diabetic ketoacidosis She did have a CT scan of the chest which showed probable upper lobe bronchitis with bronchiolitis. Allergies/Medications Allergies: Coded Allergies: No Known Allergies (08/30/16) Home Med List: Albuterol Sulfate (Proair Hfa) 90 MCG HFA.AER.AD 2 PUF INH Q4-6 PRN PRN BREATHING (Reported) Amoxicillin 875 MG TABLET 1 TAB PO BID uri Aspirin (Aspirin*) 81 MG TAB.CHEW 1 TAB PO DAILY HEART HEALTH (Reported) Benzonatate (Tessalon Perle) 100 MG CAPSULE 1 CAP PO TID cough Ibuprofen 600 MG TABLET 1 TAB PO Q6PRN PRN pain, fever with food Insulin NPL/Insulin Lispro (Humalog Mix 75-25 Kwikpen) 100 UNIT/ML (75-25) INSULN.PEN 50 U SC DIABETES (Reported) Linagliptin/Metformin HCl (Jentadueto 2.5 MG-1000 MG Tab) 2.5 MG-1,000 MG TABLET 1 TAB PO BID DIABETES (Reported) Lisinopril 20 MG TABLET 1 TAB PO DAILY HEART (Reported) Prednisone 20 MG TABLET 1 TAB PO BID asthma Saxagliptin (Onglyza) 5 MG TABLET 1 TAB PO DAILY DIABETES (Reported) Zolpidem Tartrate (Ambien) 10 MG TABLET 1 TAB PO QPM SLEEP (Reported) Review of Systems Review of Systems Constitutional: Reports: see HPI. 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 Psychosocial History Where Do You Live? Home Services at Home: None Smoking Status: Never Smoked ETOH Use: denies use Illicit Drug Use: denies illicit drug use Exam & Diagnostic Data Last 24 Hrs of Vital Signs/I&O Vital Signs Date Time Temp Pulse Resp B/P Pulse O2 O2 Flow FiO2 Ox Delivery Rate 08/31 1747 95 Nasal 2.0L Cannula 08/31 1746 97.0 108 20 131/70 94 Nasal 2.0L Cannula 08/31 1645 105 24 115/56 95 Nasal 2.0L Cannula 08/31 1548 96.7 107 20 133/61 98 Nasal 2.0L Cannula 08/31 1349 98.1 104 20 131/60 96 Nasal 2.0L Cannula 08/31 1037 105 20 152/79 96 Nasal 2.0L Cannula 08/31 1036 96.5 104 20 116/61 08/31 1007 104 20 116/61 96 Room Air 08/31 0921 96.5 116 20 120/80 92 Nasal 2.0L Cannula 08/31 0830 94 Nasal 2.0L Cannula 08/31 0651 97.6 120 26 147/90 93 Room Air Intake & Output 08/31 1600 08/31 0800 08/31 0000 Intake Total Output Total Balance Patient 240 lb Weight Last 48 Hrs of Labs/Ra: Laboratory Tests 08/31/16 1725: PT Pending, INR Pending, APTT Pending 08/31/16 1505: Troponin I 0.43 *H 08/31/16 1505: Lactic Acid 1.3 08/31/16 1351: Sodium Cancelled, Potassium Cancelled, Chloride Cancelled, Carbon Dioxide Cancelled, Anion Gap Cancelled, BUN Cancelled, Creatinine Cancelled, BUN/ Creatinine Ratio Cancelled 08/31/16 1330: Anion Gap 14, Estimated GFR > 60, Glucose 107 H, Calcium 8.7, Phosphorus 2.6, Magnesium 1.7, Total Bilirubin 0.4, AST 39 H, ALT 58 H, Albumin 3.8, Acetone Level NEGATIVE 08/31/16 1232: Lactic Acid 2.3 H 08/31/16 1230: pH 7.38, pCO2 37, pO2 75 L, HCO3 21, ABG O2 Sat (Measured) 94.0 L, P-50 (Temp Corrected) N, Carboxyhemoglobin 0.7 L, O2 Concentration % 2LPM, O2 Delivery Method NC, Phlebotomy Draw Site RIGHT BRACHIAL 08/31/16 0757: Anion Gap 22 H, Estimated GFR > 60, BUN/Creatinine Ratio 22.0, Glucose 475 H, Calcium 9.7, Total Bilirubin 0.6, AST 37 H, ALT 70 H, Alkaline Phosphatase 73, Creatine Kinase 276 H, Troponin I 0.11 *H, Total Protein 8.1, Albumin 4.5, Globulin 3.6, Albumin/Globulin Ratio 1.3, PT 10.8, INR 1.03, APTT 29, D-Dimer < 200, CBC w Diff NO MAN DIFF REQ, RBC 5.14, MCV 87.7, MCH 28.9, RDW 13.3, MPV 9.2 , Gran % 80.6 H, Lymphocytes % 13.9 L, Monocytes % 5.4, Eosinophils % 0, Basophils % 0.1, Absolute Granulocytes 8.7 H, Absolute Lymphocytes 1.5, Absolute Monocytes 0.6, Absolute Eosinophils 0, Absolute Basophils 0, PUBS MCHC 32.9 L, Salicylates < 1.0 Assessment/Plan Impression/Plan: General Appearance Alert, Oriented X3, Cooperative, No Acute Distress, however appeared mildly tachypneic Neck supple no JVD no lymphadenopathy No sinus tenderness Crowded posterior pharynx Cardiovascular Normal S1, Normal S2, tachycardia Lungs decreased breath sounds billaterally, mild prolonged expiration no obvious wheezing noted when I examined her. Extremities No Clubbing, No Cyanosis, trace right ankle edema SIGNIFICANT DATA CT of the chest reviewed which showed no pulmonary embolism bronchial wall thickening in the upper lobes associated with subtle centrilobular groundglass opacities and small centrilobular nodules highly suggestive of bronchiolitis. A chest x-ray showed no acute pulmonary findings Her blood work showed no eosinophilia however patient had had prednisone prior to that. No significant left shift noted. A d-dimer was negative. Her ABG showed mild hypoxemia 738/37/75. Patient was slightly tachycardic. EKG showed nonspecific changes no significant ST elevation noted. A troponin was 0.11 and the second one was 0.43 her LFTs were elevated her CPK was slightly elevated at 276 salicylic acid normal IMPRESSION This is a lady with significant diabetes, asthma, hypertension, obesity, probable anxiety, recent upper respiratory tract infection now has a following issues * Acute bronchitis with probable bronchiolitis with mild acute severe asthma and the wheezing seems to have improved. * She has ongoing chest pain with elevated troponin suggestive of ischemic heart disease versus demand ischemia. Patient is followed by cardiology she is already on heparin, would probably need a cardiac cath if she continues to be symptomatic as she is high risk due to her severe diabetes * Anion gap acidosis initially in the first blood work which seems to have rapidly resolved with no clinical evidence suggestive of diabetic ketoacidosis however patient is insulin-dependent diabetic, and has been on metformin other medications hence endocrine consult needs to be done * Significant respiratory distress and dyspnea related to her ongoing wheezing. There is some component of anxiety as well. * Altered liver enzymes most likely related to fatty liver versus other causes RECOMMENDATION * Put her on ipratropium only nebulizer therapy around the clock every 6 hours * Flovent 220 g 2 puffs twice a day * Prednisone 20 mg daily for 5 days * Strict sugar control * Endocrine to see * Aspirin, heparin. * Patient would need angiotensin receptor michelle instead of an HELENA inhibitor in the future as she does seem to have a chronic cough * Echocardiogram * If her troponin were to rise significantly if she has significant EKG changes she would need immediate cardiac catheterization Discussed in detail with the patient and discussed with Richard Sebastian MD Pt is critically ill tcc time 45 mins Consult Acknowledgment - Thank you for your consult request.
[2016-08-31 18:00] LABS: PT 10.9 SEC (9.4-12.5); PTT 56 SEC (25-37)
--- NOTE | 2016-08-31 18:02 | NUR ---
RESPIRATORY THERAPIST CALLY AT BEDSIDE FOR NEB TREATMENT
--- NOTE | 2016-08-31 18:24 | NUR ---
PTT 56 PER ORDERS HEPARIN DRIP INCREASED BY 2 UNITS/KG/HR INCREASING RATE TO 22.3 MLS/HR (10.3 UNITS/KG/HR). REPEAT PTT DUE IN 6 HOURS AT 00:30
--- NOTE | 2016-08-31 20:07 | NUR ---
ASSUMED CARE OF PT. PT DENIES ANY PAIN OR SOB AT THIS TIME. STATES SHE IS HUNGRY,BUT KNOWS SHE IS NPO. 02 96% ON 2L. PT CONTINUES TO HAVE NONPRODUCTIVE COUGH.
--- NOTE | 2016-08-31 20:35 | NUR ---
PT ASSIGNED BED 107
--- NOTE | 2016-08-31 20:51 | NUR ---
HOUSE STAFF PAGED REGARDING FLU VACCINE ORDER. AWAITING REPLY.
--- NOTE | 2016-08-31 21:10 | NUR ---
FAMILY LEFT PHONE NUMBERS JULIET (SON) [phone], AND SISTER SONJA [phone]
--- NOTE | 2016-08-31 21:12 | NUR ---
REPORT CALLED TO [facility].TRANSPORT BOOKED.
--- NOTE | 2016-08-31 22:28 | NUR ---
2129- RECIEVED PT FROM ER. A/OX3. AT REST SHORTNESS OF BREATH. DIMINSHED IN ALL LUNG HELM. NC/2L 96%. NSR-ST 90-100'S. SBP 120-140'S. NPO. SKIN INTACT. HEPARIN GTT 22.3ML/HR. IVF @ 100ML.HR. 6 OUT OF 10 HEADACHE- MD THOMAS AWARE STATES TO GIVE P.O. AMBIEN AT THIS TIME AND REASSESS. DENIES CHEST PAIN. WILL CONT TO MONITOR
--- NOTE | 2016-08-31 23:32 | NUR ---
HEADACHE REMAINS 6 OUT OF 10. MD THOMAS MADE AWARE. STATES SHE WILL LOOK INTO IT.
[2016-09-01] VITALS: BP 98/60
--- NOTE | 2016-09-01 00:28 | NUR ---
PT SLEEPY BUT EASILY AROUSABLE. DENIES PAIN AT THIS TIME. NSR 90'S, MANUAL BP 98/60. ON HEPARIN GTT, NO ADVERSE BLEEDING NOTED. ANDOMEN SOFT, NORMOACTIVE BS. PT HNV YET. SATURATION 98% ON 2L O2. NPO AFTER MN, FOR POSSIBLE CATH FOR IN AM.
[2016-09-01 01:06] LABS: PT 11.2 SEC (9.4-12.5); PTT 66 SEC (25-37)
[2016-09-01 05:27] LABS: ABSOLUTE BASOPHIL COUNT 0 /CUMM (0.0-0.2); ABSOLUTE EOSINOPHIL COUNT 0 /CUMM (0.0-0.7); ABSOLUTE GRANULOCYTE CT 6.4 /CUMM (1.4-6.5); ABSOLUTE LYMPH COUNT 2.6 /CUMM (1.2-3.4); BASOPHIL % 0.3 % (0.0-2.0); EOSINOPHIL % 0.3 % (0-5); GRANULOCYTE % 63.5 % (42.2-75.2); MEAN CORPUSCULAR HGB 28.9 PG (27.0-31.0); MEAN CORPUSCULAR HGB CONC 32.6 G/DL (33.0-37.0); MEAN CORPUSCULAR VOLUME 88.6 FL (81.0-99.0); MEAN PLATELET VOLUME 9.2 FL (7.4-10.4); PLATELET COUNT 201 /CUMM (130-400); RBC DISTRIBUTION WIDTH 13.1 % (11.5-14.5); RED BLOOD CELL CT 4.28 /CUMM (4.20-5.40)
--- NOTE | 2016-09-01 07:49 | Cons- CRCU ---
General Information and HPI Allergies/Medications Allergies: Coded Allergies: No Known Allergies (08/30/16) Home Med List: Albuterol Sulfate (Proair Hfa) 90 MCG HFA.AER.AD 2 PUF INH Q4-6 PRN PRN BREATHING (Reported) Aspirin (Aspirin*) 81 MG TAB.CHEW 1 TAB PO DAILY HEART HEALTH (Reported) Atorvastatin Calcium 40 MG TABLET 1 TAB PO DAILY CHOLESTROL Benzonatate (Tessalon Perle) 100 MG CAPSULE 1 CAP PO TID cough Fluticasone Propionate (Flovent Hfa) 110 MCG/ACTUATION AER.W.ADAP 4 PUF INH BID asthma Heparin (Heparin-1/2NS 25,000 Units/500) 25,000 UNIT/500 ML (50 UNIT/ML) IV.SOLN 1 BAG IV DAILY HEART Ibuprofen 600 MG TABLET 1 TAB PO Q6PRN PRN pain, fever with food Insulin Aspart (Novolog) 100 UNIT/ML VIAL 0 UNITS SC Q4 100-150MG/DL - 2 UNTIS 151-200MG/DL - 4 UNITS 201-250MG/DL - 6 UNITS 250-300MG/DL - 8 UNITS 310-350MG/DL - 10UNITS 350-400MG/DL - 12 UNITS >400MG/DL - 14 UNITS Insulin Detemir (Levemir) 100 UNIT/ML VIAL 10 UNITS SC BID diabetes Metoprolol Tartrate 25 MG TABLET 25 MG PO BID heart Nitroglycerin (Nitrostat) 0.3 MG TAB.SUBL 0.4 MG SL Q 5 MINUTES X 3 DOSE PRN CHEST PAIN Potassium Chloride/D5-0.2%NaCl (D5%-1/4NS-KCl 10 Meq/L IV Joslyn) 10 MEQ/L IV.SOLN 1 BAG IV DAILY DIABETES Prednisone 20 MG TABLET 1 TAB PO BID asthma Ranolazine (Ranexa) 500 MG TAB.ER.12H 500 MG PO BID heart Zolpidem Tartrate (Ambien) 10 MG TABLET 1 TAB PO QPM SLEEP (Reported) Past History Travel History Traveled to [place] past 21 day No Medical History Blood Transfusion Hx: No Neurological: NONE EENT: NONE Cardiovascular: NONE Respiratory: asthma Gastrointestinal: NONE Hepatic: NONE Renal: NONE Musculoskeletal: NONE Psychiatric: NONE Endocrine: diabetes Blood Disorders: NONE Cancer(s): NONE 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 Psychosocial History Where Do You Live? Home Services at Home: None Smoking Status: Never Smoked ETOH Use: denies use Illicit Drug Use: denies illicit drug use Assessment/Plan Consult Acknowledgment - Thank you for your consult request.
[2016-09-01 08:00] VITALS: BP 138/80
--- NOTE | 2016-09-01 08:24 | PN- Diabetes ---
Assessment/Plan Assessment: 60-year-old female with past medical history of asthma, diabetes type 2 on Humalog 75/25 mix between 50 and 55 units twice a day and Jentadueto 2.12/999 mg once a day at home, and hypertension, presented to ER with the chief complaints of having chest pain and shortness of breath. Her troponin has been rising with the peak troponin level of 0.43. Patient has been kept NPO overnight. She is on D51/2 NS with 20 meq of Kcl at 100 ml/hour. In addition, she will be on prednisone 20 mg daily today. She was put on Levemir 10 units twice a day and Novolog coverage every 4 hours. Her FSGs were 154 and 176. Plan: 1. continue Levemir 10 units twice a day; 2. adjust Novolog coverage every 4 hours--detail see the inpatient DM order. 3. monitor FSGs. 4. please inform me if her nutritional status changes, then I will adjust her insulin orders accordingly. will follow. Subjective Subjective: She feels better this morning. Objective Last 24 Hrs of Vital Signs/I&O Vital Signs Date Time Temp Pulse Resp B/P Pulse O2 O2 Flow FiO2 Ox Delivery Rate 09/01 0239 93 Nasal 2.0L Cannula 09/01 0000 98 Nasal 2.0L Cannula 09/01 0000 96 28 98/60 98 Nasal 2.0L Cannula 08/31 2152 96 Nasal 2.0L Cannula 08/31 2148 Nasal 2.0L Cannula 08/31 2022 98.5 106 20 122/64 95 Nasal 2.0L Cannula 08/31 2005 98.2 107 18 97/56 96 Room Air 2.0L 08/31 1924 98.1 101 16 101/100 100 Nasal 3.0L Cannula 08/31 1802 95 Nasal 2.0L Cannula 08/31 1747 95 Nasal 2.0L Cannula 08/31 1746 97.0 108 20 131/70 94 Nasal 2.0L Cannula 08/31 1745 98.7 108 20 131/70 99 Nasal 2.0L Cannula 08/31 1645 105 24 115/56 95 Nasal 2.0L Cannula 08/31 1548 96.7 107 20 133/61 98 Nasal 2.0L Cannula 08/31 1349 98.1 104 20 131/60 96 Nasal 2.0L Cannula 08/31 1037 105 20 152/79 96 Nasal 2.0L Cannula 08/31 1036 96.5 104 20 116/61 08/31 1007 104 20 116/61 96 Room Air 08/31 0921 96.5 116 20 120/80 92 Nasal 2.0L Cannula 08/31 0830 94 Nasal 2.0L Cannula Intake & Output 09/01 1600 09/01 0800 09/01 0000 Intake Total 905 262 Output Total 200 0 Balance 705 262 Intake, IV 905 122 Intake, Oral 140 Output, Urine 200 0 Patient 240 lb Weight Findings Pertinent Lab/Ra Results: Laboratory Tests 09/01 09/01 0615 0420 Chemistry Triglycerides (<150 mg/dL) 138 Cholesterol (<200 MG/DL) 142 LDL Cholesterol, Calc (65 - 129 mg/dL) 55 L HDL Cholesterol (40 - 60 mg/dL) 60 Cholesterol/HDL Ratio (0.00 - 4.23 %) 2 Urines Urine Color (YEL,AMB,STR) Pending Urine Clarity (CLEAR) Pending Urine pH (5.0 - 8.0) Pending Ur Specific Fortine (1.001 - 1.035) Pending Urine Protein (NEG,<30 MG/DL) Pending Urine Ketones (NEG) Pending Urine Nitrite (NEG) Pending Urine Bilirubin (NEG) Pending Urine Urobilinogen (0.1 - 1.0 EU/dl) Pending Ur Leukocyte Esterase (NEG) Pending Ur Microscopic SEDIMENT EXAMINED Urine RBC (0 - 5 /HPF) Pending Urine Hemoglobin (NEG) Pending Urine Glucose (N MG/DL) Pending 09/01 09/01 08/31 0420 0030 1725 Chemistry Sodium (137 - 145 mmol/L) 137 Potassium (3.5 - 5.1 mmol/L) 3.8 Chloride (98 - 107 mmol/L) 100 Carbon Dioxide (22 - 30 mmol/L) 30 Anion Gap (5 - 16) 6 BUN (7 - 17 mg/dL) 7 Creatinine (0.5 - 1.0 mg/dL) 0.5 Estimated GFR (>60 ml/min) > 60 Glucose (65 - 99 mg/dL) 148 H Calcium (8.4 - 10.2 mg/dL) 8.0 L Phosphorus (2.5 - 4.5 mg/dL) 2.8 Magnesium (1.6 - 2.3 mg/dL) 1.7 Total Bilirubin (0.2 - 1.3 mg/dL) 0.3 AST (14 - 36 U/L) 57 H ALT (9 - 52 U/L) 52 Troponin I (< 0.11 ng/ml) 0.36 *H Albumin (3.5 - 5.0 g/dL) 3.1 L Coagulation PT (9.4 - 12.5 SEC) 11.2 10.9 INR (0.90 - 1.19) 1.07 1.04 APTT (25 - 37 SEC) 66 H 56 H Hematology CBC w Diff NO MAN DIFF REQ WBC (4.8 - 10.8 /CUMM) 10.0 RBC (4.20 - 5.40 /CUMM) 4.28 Hgb (12.0 - 16.0 G/DL) 12.4 Hct (37 - 47 %) 38.0 MCV (81.0 - 99.0 FL) 88.6 MCH (27.0 - 31.0 PG) 28.9 RDW (11.5 - 14.5 %) 13.1 Plt Count (130 - 400 /CUMM) 201 MPV (7.4 - 10.4 FL) 9.2 Gran % (42.2 - 75.2 %) 63.5 Lymphocytes % (20.5 - 51.1 %) 25.9 Monocytes % (1.7 - 9.3 %) 10.0 H Eosinophils % (0 - 5 %) 0.3 Basophils % (0.0 - 2.0 %) 0.3 Absolute Granulocytes (1.4 - 6.5 /CUMM) 6.4 Absolute Lymphocytes (1.2 - 3.4 /CUMM) 2.6 Absolute Monocytes (0.10 - 0.60 /CUMM) 1.0 H Absolute Eosinophils (0.0 - 0.7 /CUMM) 0 Absolute Basophils (0.0 - 0.2 /CUMM) 0 PUBS MCHC (33.0 - 37.0 G/DL) 32.6 L 08/31 08/31 08/31 08/31 08/31 1505 1505 1351 1330 1232 Chemistry Sodium (137 - 145 mmol/L) Cancelled 141 Potassium (3.5 - 5.1 mmol/L) Cancelled 3.9 Chloride (98 - 107 mmol/L) Cancelled 101 Carbon Dioxide (22 - 30 mmol/L) Cancelled 26 Anion Gap (5 - 16) Cancelled 14 BUN (7 - 17 mg/dL) Cancelled 9 Creatinine (0.5 - 1.0 mg/dL) Cancelled 0.5 Estimated GFR (>60 ml/min) > 60 BUN/Creatinine Ratio Cancelled Glucose (65 - 99 mg/dL) 107 H Lactic Acid (0.7 - 2.1 mmol/L) 1.3 2.3 H Calcium (8.4 - 10.2 mg/dL) 8.7 Phosphorus (2.5 - 4.5 mg/dL) 2.6 Magnesium (1.6 - 2.3 mg/dL) 1.7 Total Bilirubin (0.2 - 1.3 mg/dL) 0.4 AST (14 - 36 U/L) 39 H ALT (9 - 52 U/L) 58 H Troponin I (< 0.11 ng/ml) 0.43 *H Albumin (3.5 - 5.0 g/dL) 3.8 Toxicology Acetone Level (NEGATIVE) NEGATIVE 08/31 1230 Blood Gas pH (7.35 - 7.45 PH) 7.38 pCO2 (35 - 45 TORR) 37 pO2 (80 - 100 TORR) 75 L HCO3 (21 - 28 MEQ/L) 21 ABG O2 Sat (Measured) (>96.0 %) 94.0 L P-50 (Temp Corrected) N Carboxyhemoglobin (1.5 - 5.0 %) 0.7 L O2 Concentration % 2LPM O2 Delivery Method NC Miscellaneous Phlebotomy Draw Site RIGHT BRACHIAL
--- NOTE | 2016-09-01 08:44 | Discharge Summary ---
Visit Information Visit Dates Admission Date: 08/31/16 Discharge Date: 09/01/16 Hospital Course Course Attending Physician: ROBERT GLEASON,[facility] Primary Care Physician: PATIENT HAS NO PRIMARY CARE DR Hospital Course: 60-year-old lady with past medical history of asthma, diabetes on insulin, hypertension came to the hospital complaining of chest pain or shortness of breath. Apparently she was here 2 days ago with similar compaints, but got discharged with amoxicillin, prednisone. Howevery yesterday she had chest pain yesterday and presented to ER. Pain is substernal, 03/06, nonradiating, associated with dyspnea. After coming to ER she received nitroglycerine, ativan which relieved her pain. Vital signs on admission ND 104, RR 25, BP 160/61, O2 saturation 96% on 2 L NA 136, CL 93, anion gap 23, glucose 475, AST 37, alt 70,trop 0.11, creatinine 0.5, EKG shows sinus tachycardia, QTC 439, heart rate 107, prolonged progression, left axis deviation CTA ruled out PE, and showed possible bronchitis Received Aspirin 325mg in ER and placed on aspirin 81mg. Troponins are 0.11-->0.43-->0.36 - NSTEMI Intially troponins are trended up without any significant changes in EKG and then trended down. She was started on IV heparin drip with ACS protocol form ER. She was scheduled for cath tomorrow morning. However, this morning she developed significant chest pain with dypnea - a dose of nitroglycerine was given which helped releived her chest pain. Trops also jyoti to 0.72. Although initially she was started on diltiazem 30mg Q8 (received once),we discontinued it and started on metoprolol 25mg BID and ranexa 50mg BID. A single dose of solumedrol 60mg given acutely. no acute changes in EKG and decision was made to transfer her to [facility] for emergent catheterization. Other medical issues Elevated Blood Sugars She had elevated blood sugars with bicarbonate of 20, AG of 22 in ER. Initially given 50 units of novolog in ER. Subsequently her gap closed went into hypoglycemia. She was placed on SC novolog scale with levemir 10untis BID. Fingersticks are checked every 4hrs. Today after the acute episode of chest pain - kept on D51/2NS @ 75ml/hr, Placed on novolog sliding scale and fingerstick glucose checked Q4. Sliding scale Q4 hrs. Novolog <100mg/dl - no coverage 100-150mg /dl - 2 units 151-200mg/dl - 4 units 201- 250mg/dl - 6 units 251-300mg/dl - 8 units 301-350mg/dl - 10 units 351-400mg/dl - 12 units >400mg/dl - 14units Severe Asthma Continued on nebulizer therapy (albuterol and atrovent) Anxiety Lorazepam/morphine . Complications: elevated troponins Allergies: Coded Allergies: No Known Allergies (08/30/16) Significant Procedures: SERVICE DATE: 08/31/16 EXAM TYPE: RAD - XRY-CHEST XRAY, PA AND LATERAL EXAMINATION: XR CHEST CLINICAL INFORMATION: Left-sided chest pain. Shortness of breath. COMPARISON: None. TECHNIQUE: PA and lateral views of the chest were obtained. FINDINGS: The lungs are well expanded. There is no focal consolidation, edema, or effusion. No pneumothorax. The cardiomediastinal silhouette is within normal limits. No acute osseous abnormality. Degenerative changes in the spine with mild anterior vertebral body wedging at the lower thoracic spine. This is unlikely to be acute. IMPRESSION: No acute pulmonary findings. SERVICE DATE: 08/31/16 EXAM TYPE: CAT - CTA CHEST EXAMINATION: CT ANGIOGRAM OF THE CHEST WITH CONTRAST (CT PULMONARY ANGIOGRAM FOR PE) CLINICAL INFORMATION: Chest pain and shortness of breath. COMPARISON: CXR from 08/31/2016 TECHNIQUE: Prior to contrast administration, noncontrast localization images were obtained. Subsequently, multidetector volumetric imaging was performed from the thoracic inlet to below the diaphragms following the administration of 95 mL of Optiray 320 intravenous contrast. No contrast reaction reported. Sagittal, coronal, and MIP oblique sagittal reformatted images were obtained on the CT workstation, uploaded to PACS, and reviewed. Total exam dose-length product 488 mGy-cm FINDINGS: QUALITY OF STUDY/CONTRAST BOLUS: Satisfactory. PULMONARY ARTERIES: Stable pulmonary arteries are normal in caliber. No filling defects within the main, lobar or proximal segmental pulmonary arteries. Small, peripheral vessels are difficult to evaluate due to motion degradation of images. THORACIC AORTA: Thoracic aorta is normal in caliber; no aneurysm or dissection. LUNGS AND PLEURA: Trachea and mainstem bronchi are widely patent and normal in caliber. There is bronchial wall thickening that is most conspicuous in the upper lobes -- as may be seen in bronchitis or asthma. Within the upper lobes, there are subtle centrilobular groundglass opacities and small nodular opacities that measure up to 0.3 cm; findings are highly suggestive of bronchiolitis. No pulmonary consolidation, edema or pleural effusion or pneumothorax. MEDIASTINUM: The heart size is normal. No pericardial effusion. The esophagus and thyroid gland are unremarkable. No evidence of septal bowing or right heart strain. LYMPHATICS: No pathologic sized axillary or hilar lymph nodes. Precarinal and subcarinal lymph nodes that measure 1 cm AP and are approaching the upper range of normal size. UPPER ABDOMEN: Unremarkable. OSSEOUS STRUCTURES: There is prominent paraspinal ossification of the degenerated thoracic spine. No aggressive osseous lesions. IMPRESSION: 1. No pulmonary embolism. 2. Bronchial wall thickening, most conspicuous in upper lobes, associated with subtle centrilobular groundglass opacities and small centrilobular nodules. These findings are highly suggestive of airway inflammation and possible infectious bronchiolitis. Query whether patient has history of asthma. Disposition Summary Disposition Principal Diagnosis: ischemic heart disease versus demand ischemia. Additional Diagnosis: Acute bronchitis with probable bronchiolitis Discharge Disposition: other general hospital Discharge Instructions General Discharge Information Code Status: Full Code Patient's Diet: Diabetic diet Patient's Activity: Acitivity as tolerated Follow-Up Instructions/Appts: Please follow up with Dr.Rajan MILLS after 1 week of discharge Please follow up with Dr. Marion Kay after 1 week of discharge Please follow up regarding blood sugars after 1 week of discharge Medications at Discharge Discharge Medications: Stop taking the following medications: Insulin NPL/Insulin Lispro (Humalog Mix 75-25 Kwikpen) 100 UNIT/ML (75-25) INSULN.PEN Inject into fatty tissue Lisinopril (Lisinopril) 20 MG TABLET ORAL DAILY Linagliptin/Metformin HCl (Jentadueto 2.5 MG-1000 MG Tab) 2.5 MG-1,000 MG TABLET ORAL TWICE DAILY Saxagliptin (Onglyza) 5 MG TABLET ORAL DAILY Amoxicillin (Amoxicillin) 875 MG TABLET ORAL TWICE DAILY Qty = 20 Continue taking these medications: Albuterol Sulfate (Proair Hfa) 90 MCG HFA.AER.AD 2 Puff Inhale through mouth EVERY 4-6 HOURS NEEDED as needed for BREATHING Aspirin (Aspirin*) 81 MG TAB.CHEW 1 Tablet ORAL DAILY Comments: Last Taken: 09/01/16 Time: 0934 AM Zolpidem Tartrate (Ambien) 10 MG TABLET 1 Tablet ORAL Every night Comments: Last Taken: 08/31/16 Time: 2200 PM Prednisone (Prednisone) 20 MG TABLET 1 Tablet ORAL TWICE DAILY Qty = 10 Comments: 60MG IV SOLUMEDROL GIVEN @ 0934 AM ON 09/01/16 Benzonatate (Tessalon Perle) 100 MG CAPSULE 1 Capsule ORAL THREE TIMES DAILY Qty = 21 Comments: Last Taken: 09/01/16 Time: 0934 AM Ibuprofen (Ibuprofen) 600 MG TABLET 1 Tablet ORAL EVERY 6 HOURS NEEDED as needed for pain, fever Qty = 50 Instructions: with food Start taking the following new medications: Ranolazine (Ranexa) 500 MG TAB.ER.12H 500 Milligram ORAL TWICE DAILY Days = 30 No Refills Comments: Last Taken: 09/01/16 Time: 1213 PM Nitroglycerin (Nitrostat) 0.3 MG TAB.SUBL 0.4 Milligram SUBLINGUAL EVERY 5 MINUTES X 3 DOSES as needed for CHEST PAIN Days = 15 No Refills Comments: Last Taken: 09/01/16 Time: 0921 1 SL TAB GIVEN Metoprolol Tartrate (Metoprolol Tartrate) 25 MG TABLET 25 Milligram ORAL TWICE DAILY Days = 30 No Refills Comments: NOT GIVEN 30MG PO DILTIAZEM WAS GIVEN @ 0934. Fluticasone Propionate (Flovent Hfa) 110 MCG/ACTUATION AER.W.ADAP 4 Puff Inhale through mouth TWICE DAILY Days = 30 No Refills Comments: Last Taken: 09/01/16 Time: 0934 AM Insulin Detemir (Levemir) 100 UNIT/ML VIAL 10 Units Inject into fatty tissue TWICE DAILY Days = 30 No Refills Comments: Last Taken: 09/01/16 Time: 0934 AM Insulin Aspart (Novolog) 100 UNIT/ML VIAL 0 Units Inject into fatty tissue Every 4 hours Qty = 30 No Refills Instructions: 100-150MG/DL - 2 UNTIS 151-200MG/DL - 4 UNITS 201-250MG/DL - 6 UNITS 250-300MG/DL - 8 UNITS 310-350MG/DL - 10UNITS 350-400MG/DL - 12 UNITS >400MG/DL - 14 UNITS Comments: Last Taken: 09/01/16 Time: 1030 AM DOSE: 8 UNITS SQ IN LEFT ARM Heparin (Heparin-1/2NS 25,000 Units/500) 25,000 UNIT/500 ML (50 UNIT/ML) IV.SOLN 1 Bag INTRAVEN DAILY Days = 1 No Refills Comments: HEPARIN GTT INFUSING @ 22.3ML/HR OR 10.2 UNITS/KG/HR (XHQFCW=352 KG) LAST PTTH @ 0030 = 66 SECONDS. Potassium Chloride/D5-0.2%NaCl (D5%-1/4NS-KCl 10 Meq/L IV Joslyn) 10 MEQ/L IV.SOLN 1 Bag INTRAVEN DAILY Qty = 1 No Refills Comments: INFUSING @ 75ML/HR Atorvastatin Calcium (Atorvastatin Calcium) 40 MG TABLET 1 Tablet ORAL DAILY Qty = 30 No Refills Copies To: MARION GLEASON,CHRIS Noel; MCKAYLA GLEASON,MARY LAN MD,SÁNCHEZ Attending MD Review Statement Documenting Attending: ROBERT GLEASON,SAMARA
--- NOTE | 2016-09-01 08:57 | PN- Cardiology ---
See Addendum Subjective Subjective: Patient resting quietly. Telemetery Sinus rythym. No chest pain . Objective Vital Signs and I&Os Vital Signs Date Time Temp Pulse Resp B/P Pulse O2 O2 Flow FiO2 Ox Delivery Rate 09/01 0239 93 Nasal 2.0L Cannula 09/01 0000 98 Nasal 2.0L Cannula 09/01 0000 96 28 98/60 98 Nasal 2.0L Cannula 08/31 2152 96 Nasal 2.0L Cannula 08/31 2148 Nasal 2.0L Cannula 08/31 2022 98.5 106 20 122/64 95 Nasal 2.0L Cannula 08/31 2005 98.2 107 18 97/56 96 Room Air 2.0L 08/31 1924 98.1 101 16 101/100 100 Nasal 3.0L Cannula 08/31 1802 95 Nasal 2.0L Cannula 08/31 1747 95 Nasal 2.0L Cannula 08/31 1746 97.0 108 20 131/70 94 Nasal 2.0L Cannula 08/31 1745 98.7 108 20 131/70 99 Nasal 2.0L Cannula 08/31 1645 105 24 115/56 95 Nasal 2.0L Cannula 08/31 1548 96.7 107 20 133/61 98 Nasal 2.0L Cannula 08/31 1349 98.1 104 20 131/60 96 Nasal 2.0L Cannula 08/31 1037 105 20 152/79 96 Nasal 2.0L Cannula 08/31 1036 96.5 104 20 116/61 04 1007 104 20 116/61 96 Room Air 08/31 0921 96.5 116 20 120/80 92 Nasal 2.0L Cannula Intake & Output 09/01 1600 09/01 0809/01 0000 08/31 1600 08/31 0808/31 0000 Intake Total 905 262 Output Total 200 0 Balance 705 262 Intake, IV 905 122 Intake, Oral 140 Output, Urine 200 0 Patient 240 lb 240 lb Weight Physical Exam: Exam patient appears comfortable laying on her side. Head normocephalic atraumatic Eyes sclera anicteric conjunctiva showed no pallor extraocular muscles were normal Neck no jugular venous distention no thyroid masses no palpable nodes Chest lungs reveals few scattered wheezes bilaterally Heart regular rhythm with a 1/6 systolic murmur Abdomen soft protuberant bowel sounds normal Extremities no clubbing cyanosis or pedal edema Neurological no gross motor or sensory deficits Current Medications: Current Medications Sig/Guilherme Start time Last Medication Dose Route Stop Time Status Admin Acetaminophen 0 .STK-MED ONE 08/31 1733 DC PO Acetaminophen 650 MG Q6P PRN 08/31 1230 AC 08/31 PO 1733 Albuterol Sulfate 2 PUF Q4P PRN 09/01 0200 DC INH Aspirin 81 MG DAILY 09/01 1000 AC PO Benzonatate 100 MG TID 08/31 2230 AC 08/31 PO 2308 Benzonatate 100 MG TID 08/31 1600 DC 08/31 PO 1653 Dextrose 12.5 GM ONCE ONE 08/31 1615 DC 08/31 IV 08/31 1616 1609 Dextrose 0 .STK-MED ONE 08/31 1558 DC IV Dextrose 12.5 GM ONCE ONE 08/31 1515 DC 08/31 IV 08/31 1516 1603 Fluticasone 4 PUF BID 08/31 2200 AC 08/31 Propionate INH 2308 Heparin Sodium 0 .STK-MED ONE 08/31 1025 DC (Porcine) .ROUTE Heparin Sodium 4,000 UNIT ONCE ONE 08/31 1015 DC 08/31 (Porcine) IV 08/31 1016 1040 Heparin Sodium 25,000 UNIT Q24H 08/31 1015 AC 08/31 (Porcine) IV 1040 Sodium Chloride 500 ML Influenza Virus 0.5 ML ONCE ONE 08/31 1900 DC Vaccine IM 08/31 1901 Insulin Aspart 0 TIDAC/HS 09/01 1200 AC SC Insulin Aspart 0 Q4 08/31 1800 DC SC Insulin Aspart Prota 50 UNIT ONCE ONE 08/31 1015 DC 08/31 70%/Aspart 30% SC 08/31 1016 1036 Insulin Detemir 10 UNITS BID 08/31 1515 AC 08/31 SC 2201 Insulin Human Isoph/ 50 UNITS ONCE ONE 08/31 1015 CAN Insulin Regular SC 08/31 1016 Insulin Human NPH 50 UNITS ONCE ONE 08/31 1015 CAN SC 08/31 1016 Insulin Human Regular 0 Q6 08/31 1800 CAN SC Insulin Human Regular 100 UNIT Q24H 08/31 1400 CAN Sodium Chloride 100 ML IV Ipratropium [place] 2.5 ML TID 08/31 2200 AC 09/01 INH 0848 Ipratropium [place] 2.5 ML Q6 08/31 1851 DC INH Lorazepam 1 MG ONE ONE 08/31 1215 DC 08/31 PO 08/31 1216 1210 Lorazepam 0 .STK-MED ONE 08/31 1205 DC PO Magnesium Sulfate 1 GM ONCE ONE 09/01 0830 AC Dextrose/Water 100 ML IV 09/01 1229 Metoprolol Tartrate 0 .STK-MED ONE 08/31 1025 DC IV Metoprolol Tartrate 5 MG ONCE ONE 08/31 1000 DC 08/31 IV 08/31 1001 1036 Nitroglycerin 0.4 MG Q 5 MINUTES X 3 DO.. 08/31 1400 AC SL Nitroglycerin 0.4 MG ONCE ONE 08/31 0945 DC 08/31 SL 08/31 0946 0930 Potassium Chloride 10 MEQ ONCE ONE 09/01 0830 DC IV 09/01 0831 Potassium Chloride 20 MEQ Q13H 08/31 1430 DC 09/01 Dextrose/Sodium 1,000 ML IV 0442 Chloride Potassium Chloride 20 MEQ Q13H 08/31 1400 CAN Dextrose/Sodium 1,000 ML IV Chloride Potassium Chloride 20 MEQ Q13H 08/31 1400 DC 08/31 Sodium Chloride 1,000 ML IV 1410 Prednisone 20 MG DAILY 09/01 1000 AC PO 09/05 1001 Sodium Chloride 500 ML BOLUS ONE 08/31 1215 CAN IV 08/31 1314 Sodium Chloride 1,000 ML Q13H 08/31 1215 DC 08/31 IV 08/31 1700 1247 Sodium Chloride 500 ML BOLUS ONE 08/31 1215 DC IV 08/31 1314 Sodium Chloride 1,000 ML BOLUS ONE 08/31 1215 DC 08/31 IV 08/31 1314 1233 Sodium Chloride 500 ML BOLUS ONE 08/31 1000 DC 08/31 IV 08/31 1059 1007 Zolpidem Tartrate 10 MG QPM 08/31 2200 AC 08/31 PO 2201 Results Last 48 Hrs of Labs/Mics: Laboratory Tests 09/01/16 0615: Urine Color YEL, Urine Clarity HAZY H, Urine pH 6.0, Ur Specific Paia 1.025, Urine Protein TRACE H, Urine Ketones TRACE H, Urine Nitrite NEG, Urine Bilirubin NEG, Urine Urobilinogen 0.2, Ur Leukocyte Esterase SMALL H, Ur Microscopic SEDIMENT EXAMINED, Urine RBC 1-3, Urine WBC 15-25 H, Ur Epithelial Cells MOD H, Urine Hemoglobin TRACE-INTACT, Urine Glucose NEG 09/01/16 0420: Triglycerides 138, Cholesterol 142, LDL Cholesterol, Calc 55 L, HDL Cholesterol 60, Cholesterol/HDL Ratio 2 09/01/16 0420: Anion Gap 6, Estimated GFR > 60, Glucose 148 H, Calcium 8.0 L, Phosphorus 2.8, Magnesium 1.7, Total Bilirubin 0.3, AST 57 H, ALT 52, Albumin 3.1 L, CBC w Diff NO MAN DIFF REQ, RBC 4.28, MCV 88.6, MCH 28.9, RDW 13.1, MPV 9.2, Gran % 63.5, Lymphocytes % 25.9, Monocytes % 10.0 H, Eosinophils % 0.3, Basophils % 0.3, Absolute Granulocytes 6.4, Absolute Lymphocytes 2.6, Absolute Monocytes 1.0 H, Absolute Eosinophils 0, Absolute Basophils 0, PUBS MCHC 32.6 L 09/01/16 0030: Troponin I 0.36 *H, PT 11.2, INR 1.07, APTT 66 H 08/31/16 1725: PT 10.9, INR 1.04, APTT 56 H 08/31/16 1505: Troponin I 0.43 *H 08/31/16 1505: Lactic Acid 1.3 08/31/16 1351: Sodium Cancelled, Potassium Cancelled, Chloride Cancelled, Carbon Dioxide Cancelled, Anion Gap Cancelled, BUN Cancelled, Creatinine Cancelled, BUN/ Creatinine Ratio Cancelled 08/31/16 1330: Anion Gap 14, Estimated GFR > 60, Glucose 107 H, Calcium 8.7, Phosphorus 2.6, Magnesium 1.7, Total Bilirubin 0.4, AST 39 H, ALT 58 H, Albumin 3.8, Acetone Level NEGATIVE 08/31/16 1232: Lactic Acid 2.3 H 08/31/16 1230: pH 7.38, pCO2 37, pO2 75 L, HCO3 21, ABG O2 Sat (Measured) 94.0 L, P-50 (Temp Corrected) N, Carboxyhemoglobin 0.7 L, O2 Concentration % 2LPM, O2 Delivery Method NC, Phlebotomy Draw Site RIGHT BRACHIAL 08/31/16 6104: Anion Gap 22 H, Estimated GFR > 60, BUN/Creatinine Ratio 22.0, Glucose 475 H, Calcium 9.7, Total Bilirubin 0.6, AST 37 H, ALT 70 H, Alkaline Phosphatase 73, Creatine Kinase 276 H, Troponin I 0.11 *H, Total Protein 8.1, Albumin 4.5, Globulin 3.6, Albumin/Globulin Ratio 1.3, PT 10.8, INR 1.03, APTT 29, D-Dimer < 200, CBC w Diff NO MAN DIFF REQ, RBC 5.14, MCV 87.7, MCH 28.9, RDW 13.3, MPV 9.2 , Gran % 80.6 H, Lymphocytes % 13.9 L, Monocytes % 5.4, Eosinophils % 0, Basophils % 0.1, Absolute Granulocytes 8.7 H, Absolute Lymphocytes 1.5, Absolute Monocytes 0.6, Absolute Eosinophils 0, Absolute Basophils 0, PUBS MCHC 32.9 L, Salicylates < 1.0 Assessment/Plan Assessment/Plan In summary this 60-year-old female is admitted with the following problems #1 acute excerebration of shortness of breath most likely related to bronchitis based on CT scan. #2 positive troponin probably related to supply demand mismatch. #3 diabetes mellitus #4 hypertension #5 CTA negative for pulmonary embolism The cause for her troponin is probably supply demand mismatch. We do not plan to do a cardiac catheterization on her. This would be unless she develops new EKG changes or days wall motion abnormality on her echocardiogram which has not been performed as you. I would suggest peak continue IV heparin until the echocardiogram is done. If no left ventricular wall motion abnormalities noted and she continues to improve cardiac his ischemic workup may be done as an outpatient. I would attempt to use diltiazem 30 mg every 8 hours both for anti- ischemic and to control her rate. Continue telemetry? Yes
--- NOTE | 2016-09-01 09:21 | PN- CRCU ---
Subjective HPI/Critical Care Issues: Started having chest pain today this morning when she is tried to go to the bathroom. She said she was asymptomatic with no pain this morning. When I saw her she was having active chest discomfort in the precordial area and was wheezing. No cough no sputum production. Patient appeared little anxious. She was not significantly hypoxemic saturating 99% on 2 L. She had just received Atrovent nebulizer therapy. Albuterol was held due to her previous tachycardia. Since admission her chest pain had resolved per patient noted seems to have come back up and her troponin early this morning was 0.36. No leg swelling no nausea vomiting no diarrhea. Patient does have GERD like symptoms as well. Significant data reviewed potassium 3.8 troponin 0.36 AST is 57 which is little higher than before ALT has normalized. White count 10,000 with no significant left shift patient does have 10% monocytes. Previous ABG from yesterday noted. CT scan of the chest reviewed from yesterday no pulmonary embolism bronchial wall thickening. This morning's EKG is pending. Objective Current Medications: Current Medications Sig/Guilherme Start time Last Medication Dose Route Stop Time Status Admin Acetaminophen 0 .STK-MED ONE 08/31 1733 DC PO Acetaminophen 650 MG Q6P PRN 08/31 1230 AC 08/31 PO 1733 Albuterol Sulfate 2 PUF Q4P PRN 09/01 0200 DC INH Aspirin 81 MG DAILY 09/01 1000 AC PO Benzonatate 100 MG TID 08/31 2230 AC 08/31 PO 2308 Benzonatate 100 MG TID 08/31 1600 DC 08/31 PO 1653 Dextrose 12.5 GM ONCE ONE 08/31 1615 DC 08/31 IV 08/31 1616 1609 Dextrose 0 .STK-MED ONE 08/31 1558 DC IV Dextrose 12.5 GM ONCE ONE 08/31 1515 DC 08/31 IV 08/31 1516 1603 Diltiazem HCl 30 MG Q8 09/01 0900 AC PO Fluticasone 4 PUF BID 08/31 2200 AC 08/31 Propionate INH 2308 Heparin Sodium 0 .STK-MED ONE 08/31 1025 DC (Porcine) .ROUTE Heparin Sodium 4,000 UNIT ONCE ONE 08/31 1015 DC 08/31 (Porcine) IV 08/31 1016 1040 Heparin Sodium 25,000 UNIT Q24H 08/31 1015 AC 08/31 (Porcine) IV 1040 Sodium Chloride 500 ML Influenza Virus 0.5 ML ONCE ONE 08/31 1900 DC Vaccine IM 08/31 1901 Insulin Aspart 0 TIDAC/HS 09/01 1200 AC SC Insulin Aspart 0 Q4 08/31 1800 DC SC Insulin Aspart Prota 50 UNIT ONCE ONE 08/31 1015 DC 08/31 70%/Aspart 30% SC 08/31 1016 1036 Insulin Detemir 10 UNITS BID 08/31 1515 AC 08/31 SC 2201 Insulin Human Isoph/ 50 UNITS ONCE ONE 08/31 1015 CAN Insulin Regular SC 08/31 1016 Insulin Human NPH 50 UNITS ONCE ONE 08/31 1015 CAN SC 08/31 1016 Insulin Human Regular 0 Q6 08/31 1800 CAN SC Insulin Human Regular 100 UNIT Q24H 08/31 1400 CAN Sodium Chloride 100 ML IV Ipratropium [place] 2.5 ML TID 08/31 2200 AC 09/01 INH 0848 Ipratropium [place] 2.5 ML Q6 08/31 1851 DC INH Lorazepam 1 MG ONE ONE 08/31 1215 DC 08/31 PO 08/31 1216 1210 Lorazepam 0 .STK-MED ONE 08/31 1205 DC PO Magnesium Oxide 400 MG ONE ONE 09/01 0900 DC PO 09/01 09 Magnesium Sulfate 1 GM ONCE ONE 09/01 0830 CAN Dextrose/Water 100 ML IV 09/01 1229 Methylprednisolone 60 MG ONCE ONE 09/01 0915 UNVr IV 09/01 0916 Metoprolol Tartrate 0 .STK-MED ONE 08/31 1025 DC IV Metoprolol Tartrate 5 MG ONCE ONE 08/31 1000 DC 08/31 IV 08/31 1001 1036 Morphine Sulfate 2 MG Q2P PRN 09/01 0915 UNVr IV Nitroglycerin 0.4 MG Q 5 MINUTES X 3 DO.. 08/31 1400 AC SL Nitroglycerin 0.4 MG ONCE ONE 08/31 0945 DC 08/31 SL 08/31 0946 0930 Potassium Chloride 40 MEQ ONCE ONE 09/01 09 DC PO 09/01 0901 Potassium Chloride 10 MEQ ONCE ONE 09/01 0830 CAN IV 09/01 0831 Potassium Chloride 20 MEQ Q13H 08/31 1430 DC 09/01 Dextrose/Sodium 1,000 ML IV 0442 Chloride Potassium Chloride 20 MEQ Q13H 08/31 1400 CAN Dextrose/Sodium 1,000 ML IV Chloride Potassium Chloride 20 MEQ Q13H 08/31 1400 DC 08/31 Sodium Chloride 1,000 ML IV 1410 Prednisone 20 MG DAILY 09/01 1000 AC PO 09/05 1001 Sodium Chloride 500 ML BOLUS ONE 08/31 1215 CAN IV 08/31 1314 Sodium Chloride 1,000 ML Q13H 08/31 1215 DC 08/31 IV 08/31 1700 1247 Sodium Chloride 500 ML BOLUS ONE 08/31 1215 DC IV 08/31 1314 Sodium Chloride 1,000 ML BOLUS ONE 08/31 1215 DC 08/31 IV 08/31 1314 1233 Sodium Chloride 500 ML BOLUS ONE 08/31 1000 DC 08/31 IV 08/31 1059 1007 Zolpidem Tartrate 10 MG QPM 08/31 2200 AC 08/31 PO 2201 Vital Signs & I&O Last 24 Hrs of Vitals and I&O: Vital Signs Date Time Temp Pulse Resp B/P Pulse O2 O2 Flow FiO2 Ox Delivery Rate 09/01 0850 98 Nasal 2.0L Cannula 09/01 0239 93 Nasal 2.0L Cannula 09/01 0000 98 Nasal 2.0L Cannula 09/01 0000 96 28 98/60 98 Nasal 2.0L Cannula 08/31 2153 96 Nasal 2.0L Cannula 08/319 Nasal 2.0L Cannula 08/31 2022 98.5 106 20 122/64 95 Nasal 2.0L Cannula 08/31 2006 98.2 107 18 97/56 96 Room Air 2.0L 08/31 1924 98.1 101 16 101/100 100 Nasal 3.0L Cannula 08/31 1802 95 Nasal 2.0L Cannula 08/31 1747 95 Nasal 2.0L Cannula 08/31 1746 97.0 108 20 131/70 94 Nasal 2.0L Cannula 08/31 1745 98.7 108 20 131/70 99 Nasal 2.0L Cannula 08/31 1645 105 24 115/56 95 Nasal 2.0L Cannula 08/31 1548 96.7 107 20 133/61 98 Nasal 2.0L Cannula 08/31 1349 98.1 104 20 131/60 96 Nasal 2.0L Cannula 08/31 1037 105 20 152/79 96 Nasal 2.0L Cannula 08/31 1036 96.5 104 20 116/61 08/31 1007 104 20 116/61 96 Room Air 08/31 0921 96.5 116 20 120/80 92 Nasal 2.0L Cannula Intake & Output 09/01 1600 09/01 0800 09/01 0000 Intake Total 905 262 Output Total 200 0 Balance 705 262 Intake, IV 905 122 Intake, Oral 140 Output, Urine 200 0 Patient 240 lb Weight Impression/Plan Impression/Plan Impression/Plan: General Appearance Alert, Oriented X3, Cooperative, mild Acute Distress, appeared mildly tachypneic Neck supple no JVD no lymphadenopathy No sinus tenderness Crowded posterior pharynx Cardiovascular Normal S1, Normal S2, tachycardia Lungs decreased breath sounds billaterally, mild prolonged expiration no obvious wheezing noted when I examined her. Extremities No Clubbing, No Cyanosis, trace right ankle edema SIGNIFICANT DATA CT of the chest reviewed which showed no pulmonary embolism bronchial wall thickening in the upper lobes associated with subtle centrilobular groundglass opacities and small centrilobular nodules highly suggestive of bronchiolitis. A chest x-ray showed no acute pulmonary findings IMPRESSION This is a lady with significant diabetes, asthma, hypertension, obesity, probable anxiety, recent upper respiratory tract infection now has a following issues * Acute bronchitis with probable bronchiolitis with acute severe asthma and the wheezing seems to have recurred this morning with active wheezing. Patient was not on bronchodilator with beta agonist due to her tachycardia and she was only on antimuscarinic agent. * She has ongoing chest pain with elevated troponin suggestive of ischemic heart disease versus demand ischemia. Patient is followed by cardiology she is already on heparin, would probably need a cardiac cath if she continues to be symptomatic as she is high risk due to her severe diabetes, patient does have elevated troponin as well for. Now she is having chest discomfort EKG pending * Anion gap acidosis initially in the first blood work which seems to have rapidly resolved with no clinical evidence suggestive of diabetic ketoacidosis however patient is insulin-dependent diabetic, and has been on metformin other medications, no evidence suggestive of diabetic ketoacidosis and the first blood work may have been a lab better versus transient acidosis which seems to have rapidly resolved. * Significant respiratory distress and dyspnea related to her ongoing wheezing. There is some component of anxiety as well. * Altered liver enzymes most likely related to fatty liver versus other causes, this seems to be slowly improving RECOMMENDATION * Start albuterol 1.25 mg (half the normal dose) with ipratropium round-the- clock every 4 hours. Hold albuterol if the heart rate is more than 110. * Flovent 220 g 2 puffs twice a day * As she is wheezing now Solu-Medrol 60 mg 1, depending on her overall course will start her on 60 mg by mouth prednisone in the morning with a slow taper * Strict sugar control * Endocrine following please alert to the endocrine that patient will be going on Solu-Medrol. We will keep her nothing by mouth until cardiology sees her. * Aspirin, heparin. * Patient would need angiotensin receptor michelle instead of an HELENA inhibitor in the future as she does seem to have a chronic cough * Echocardiogram * If she has significant EKG changes she would need immediate cardiac catheterization * Started on morphine 2 mg every 2 hours when necessary only for severe chest pain. Use Ativan as needed. Patient would require sublingual nitroglycerin if she has persistent chest pain. Discussed in detail with the patient,
[2016-09-01 09:32] VITALS: BP 140/88
[2016-09-01] MEDS ORDERED: HEPARIN-1/25000 UNI1 IV (11:44)
[2016-09-01] MEDS ORDERED: [UNRECOGNIZED DRUG - OTHER] IV (11:46)
[2016-09-01] MEDS ORDERED: ATORVASTATIN CA40 M1 PO (11:48)
--- NOTE | 2016-09-01 11:48 | Patient Discharge Instructions ---
Discharge Instructions General Discharge Information You were seen/treated for: NSTEMI Bronchitis Special Instructions: Please follow up with PCP after 1 week of discharge Please follow up with Dr. Marion Kay after 1 week of discharge Please follow up regarding blood sugars after 1 week of discharge Diet Recommended Diet: NPO FOR NOW Activity Activity Self Limited: Yes Acute Coronary Syndrome Inclusion Criteria At DC or during hospital stay patient has or had the following: ACS DIAGNOSIS Yes Discharge Core Measures Meds if any: Prescribed or Continued at Discharge HELENA/ARB if EF <40% No Aspirin Yes Beta-Johan Yes Statin Yes Meds if any: NOT Prescribed or Continued at Discharge Congestive Heart Failure Inclusion Criteria At DC or during hospital stay patient has or had the following: CHF DIAGNOSIS No Discharge Core Measures Meds if any: Prescribed or Continued at Discharge Meds if any: NOT Prescribed or Continued at Discharge Cerebrovascular accident Inclusion Criteria At DC or during hospital stay patient has or had the following: CVA/TIA Diagnosis No Discharge Core Measures Meds if any: Prescribed or Continued at Discharge Meds if any: NOT Prescribed or Continued at Discharge Venous thromboembolism Inclusion Criteria VTE Diagnosis No VTE Type NONE VTE Confirmed by (Test) NONE Discharge Core Measures - Per Current guidelines, there needs to be overlap - treatment for the first 5 days of Warfarin therapy. - If discharged on Warfarin prior to 5 days of - overlap therapy, the patient will need to be - assessed for post discharge needs including - *Post discharge parental anticoagulation - *Warfarin and/or parental anticoagulation education - *Follow up date to check INR post discharge At least 5 days overlap therapy as Inpatient No Meds if any: Prescribed or Continued at Discharge Note: Overlap Therapy is Warfarin and Anticoagulant Meds if any: NOT Prescribed or Continued at Discharge
[2016-09-01] MEDS ORDERED: FLOVENT HFA12 G1 INH (12:10)
[2016-09-01] MEDS ORDERED: LEVEMIR100 UNIT/1 SC (12:11)
[2016-09-01] MEDS ORDERED: NOVOLOG100 UNIT/2 SC (12:11)
[2016-09-01] MEDS ORDERED: NITROSTAT0.3 M1 SL (12:12)
[2016-09-01] MEDS ORDERED: METOPROLOL TART25 M1 PO (12:12)
[2016-09-01] MEDS ORDERED: RANEXA500 M1 PO (12:13)
== END 2016-09-01 12:25 | disposition short-term general hospital (02) | DRG 311 ==
LOC: ERH 06:46 → ERHI 10:16 → CRI 10:16 → ERHI 12:39 → CRI 21:28
PROVIDERS: Emergency Medicine; Internal Medicine; ADMIT Internal Medicine
DX: I24.8 Other forms of acute ischemic heart disease (principal); I10 Essential (primary) hypertension; E11.9 Type 2 diabetes mellitus without complications; J20.9 Acute bronchitis, unspecified; J45.909 Unspecified asthma, uncomplicated; Z79.4 Long term (current) use of insulin
CPT/HCPCS: CCU; 36415; 81001; 82436; 93005; 93010; 96361; 96365; 96374; 96376; 99291; G0480; J1644; J1815; J2270; J2920; J2930; J3490; J7040; J7042; Q2036